=== PATIENT | male | born 1945 | race Caucasian/White ===

== ENCOUNTER 2016-06-29 19:51 | Emergency (ER) | payer OTHER ==
[2016-06-29 20:03] VITALS: BP 145/75; PULSE 86; TEMP 98; BMI 30.4
--- NOTE | 2016-06-29 20:07 | PDOC ---
History of Present Illness - General History Source: Patient, Family, Old Records - History of Present Illness Initial Comments: 06/29/16 21:01 The patient is a 71 year old male, accompanied by family, current smoker (1ppd for 50 years), with a significant past medical history of CHF ( 2 stents in 2009 ), HTN, and HLD, who presents to the emergency department today for further evaluation of a cough since 06/22/16. Family states that earlier this month the patient was experiencing similar symptoms, was given a z-truman, and symptoms resolved. Family states that they gave the patient another dose of z-truman this week with minimal alleviations of symptoms. The patient states that his cough is accompanied by intermittent chest tightness, sore throat, shaking, and chest pain(only when he coughs). The patient also notes chronic vertigo. The patient denies fever, chills, and sweats. The patient denies nausea, vomiting, and diarrhea. The patient denies shortness of breath. PAST MEDICAL HISTORY: no significant history PAST SURGICAL HISTORY: Hernia repair (3 months ago), FAMILY HISTORY: no pertinent history SOCIAL HISTORY: Pt lives with family and is employed. MEDICATIONS: reviewed ALLERGIES: As per nursing notes ROS General: (+) Shakes. No fevers or chills, no weakness, no weight loss HEENT: No change in vision. (+) Sore throat, No ear pain Cardiovascular: (+) Chest pain, Chest tightness. No shortness of breath Respiratory: No cough, or wheezing. Gastrointestinal: no nausea, vomiting, diarrhea or constipation, No rectal bleeding Genitourinary: No dysuria, hematuria, or frequency Musculoskeletal: No joint or muscle pain or swelling Neurologic: (+) Vertigo. No headache or dizziness or loss of consciousness Psychiatric: nor depression Skin: No rashes or easy bruising Endocrine: no increased thirst or abnormal weight change Allergic: no skin or latex allergy All other systems reviewed and normal PE GENERAL: The patient is awake, alert, and fully oriented, in no acute distress. HEAD: Normal with no signs of trauma. EYES: Pupils equal, round and reactive to light, extraocular movements intact, sclera anicteric, conjunctiva clear. CHEST: Irregularly, Irregular. RESPIRATORY: Decreased breath sounds at right base EXTREMITIES: Normal range of motion, no edema. NEUROLOGICAL: Normal speech, normal gait. PSYCH: Normal mood, normal affect. SKIN: Warm, Dry, normal turgor, no rashes or lesions noted. <Nic Garg - Last Filed: 06/29/16 21:12> - General History Source: Patient Exam Limitations: Language Barrier - History of Present Illness Initial Comments: 06/29/16 21:38 A portion of this note was documented by scribe services under my direction. I have reviewed the details of the note, within reason, and agree with the documentation. The case summary and management plan written by me. EKG shows atrial fibrillation at a rate is 74 some biphasic T's laterally otherwise no acute ST-T wave changes, Chest x-ray shows chronic interstitial disease bilateral, enlarged heart, tortuous aorta otherwise no acute infiltrate or effusion. Assessment and plan: This is a 71-year-old male who comes in complaining of intermittent chest pain and shortness of breath. Patient is had been having symptoms intermittently for several weeks was treated with azithromycin for shortness of breath with improvement of symptoms but then symptoms returned approximately 2 weeks later. Patient is not had a cardiac workup recently. Patient has a significant cardiac history with multiple cardiac risk factors for coronary artery disease including placement of 2 stents in the past. Patient is on xeralto for his atrial fibrillation and so an aspirin was not given to him here in the emergency room. Patient's heart scores 5 Patient's lab work is otherwise unremarkable with a negative troponin. Patient will be admitted to the hospitalist service inpatient telemetry bed for further evaluation and to rule him out for TX. 06/29/16 21:45 After patient was informed that he needs to be admitted to an inpatient telemetry bed for further evaluation of possible cardiac causes for his shortness of breath and chest pain patient refuses to stay in the hospital. Patient understands that if he leaves that he could have a heart attack which could result in permanent disability or even . I discussed these possibilities with patient's family who then interpreted to him these concerns and possibilities. Patient expressed understanding of the concerns and possibility of heart attack , [place] disability and . Patient signed out AGAINST MEDICAL ADVICE. <Cali Howard I - Last Filed: 06/29/16 21:49> - General Chief Complaint: Cold Symptoms Stated Complaint: COUGH, CHILLS Time Seen by Provider: 06/29/16 19:58 Past History <Nic Garg - Last Filed: 06/29/16 21:12> - Psycho/Social/Smoking Cessation Hx Suicidal Ideation: No Smoking History: Current every day smoker Number of Cigarettes Smoked Daily: 20 Information on smoking cessation initiated: Yes <Cali Howard I - Last Filed: 06/29/16 21:49> - Past Medical History Allergies/Adverse Reactions: Allergies Allergy/AdvReac Type Severity Reaction Status Date / Time No Known Allergies Allergy Unverified 06/29/16 20:03 Home Medications: Ambulatory Orders Lasix 1 tab PO DAILY 06/29/16 Metformin HCl [Glucophage -] 850 mg PO BID 06/29/16 Non-Formulary 0 mg ASDIR 06/29/16 Rivaroxaban [Xarelto -] 15 mg PO DAILY 06/29/16 *Physical Exam - Vital Signs Last Vital Signs Temp Pulse Resp BP Pulse Ox 98 F 86 18 145/75 98 06/29/16 20:01 06/29/16 20:01 06/29/16 20:01 06/29/16 20:01 06/29/16 20:01 <ForestNic - Last Filed: 06/29/16 21:12> - Vital Signs Last Vital Signs Temp Pulse Resp BP Pulse Ox 98 F 86 18 145/75 98 06/29/16 20:01 06/29/16 20:01 06/29/16 20:01 06/29/16 20:01 06/29/16 20:01 <Cali Howard I - Last Filed: 06/29/16 21:49> Heart Score/ECG Review - ECG Impressions Comment:: 06/29/16 21:12 ECG Impression: Atrial fibrillation. Left anterior fascicular block. Moderate voltage criteria for LVH, may be normal variant. Nonspecific T wave abnormality. Abnormal ECG. <Nic Garg - Last Filed: 06/29/16 21:12> - History History: Slightly suspicious - Electrocardiogram EKG: Non specific repolarization disturbance - Age Age: >/= 65 - Risk Factors Risk Factors Heart Score: Yes Hx Hypertension, Yes Hx Diabetes, Yes Smoking History, Yes Positive family hx of cardiac disease Based on the list above the patient has:: >/=3 risk factors or Hx atherosclerotic disease - Troponin Troponin: </= normal limit - Score Heart Score - Total: 5 <Cali Howard I - Last Filed: 06/29/16 21:49> ED Treatment Course - LABORATORY CBC & Chemistry Diagram: 06/29/16 20:42 06/29/16 20:42 <Nic Garg - Last Filed: 06/29/16 21:12> - LABORATORY CBC & Chemistry Diagram: 06/29/16 20:42 06/29/16 20:42 <Cali Howard I - Last Filed: 06/29/16 21:49> *DC/Admit/Observation/Transfer - Attestations Scribe Attestion: 06/29/16 21:04 Documentation prepared by Nic Garg, acting as director of graduate medical education for Cali Howard MD. <Nic Garg - Last Filed: 06/29/16 21:12> <Cali Howard I - Last Filed: 06/29/16 21:49> Diagnosis at time of Disposition: Dyspnea Qualifiers: Dyspnea type: unspecified Qualified Code(s): R06.00 - Dyspnea, unspecified Chest pain Qualifiers: Chest pain type: unspecified Qualified Code(s): R07.9 - Chest pain, unspecified - Discharge Dispostion Disposition: AGAINST MEDICAL ADVICE Condition at time of disposition: Stable - Referrals Referrals: Simeon Mendoza MD [Primary Care Provider] - - Patient Instructions Additional Instructions: You are signing out of the emergency room AGAINST MEDICAL ADVICE. By signing out AGAINST MEDICAL ADVICE you understand that there is a possibility that your symptoms could be due to problems with your heart. You could have a heart attack , which could result in permanent disability or . It is my suggestion that you not medicate the cough as it could be related to something going on with your heart and you should follow-up with your [facility] [employer] [facility] [employer] group leader prior to taking any cough medications. Return to the emergency department immediately with ANY new, persistent or worsening symptoms. Continue any medications as previously prescribed by your physician. You should follow up with your primary doctor as soon as possible regarding today's emergency department visit. . Please make sure your doctor reviews the results of your emergency evaluation. Thank you for coming to the Emergency Department today for your care. It was a pleasure to see you today. Please note that your evaluation is INCOMPLETE until you follow-up with your doctor.
[2016-06-29 20:58] LABS: BASOPHIL 0.9 % (0-2.0); EOSINOPHIL 2.6 % (0-4.5); MCH 22.5 pg (25.7-33.7); MCHC 30.6 g/dl (32.0-35.9); MEAN CELL VOLUME 73.5 fl (80-96); MEAN PLT VOLUME 8.2 fl (7.5-11.1); NEUTROPHILS 62.5 % (42.8-82.8); PLATELET COUNT 333 K/MM3 (134-434); RDW 15.1 % (11.9-15.9)
[2016-06-29 21:07] LABS: CPK(DFH) 47 IU/L (38-174)
[2016-06-29 21:07] LABS: ALBUMIN 3.6 g/dl (3.5-5.0); ALK PHOS 100 U/L (32-92); ANION GAP 9 (8-16); BILIRUBIN,TOTAL 0.3 mg/dl (0.2-1.0); CO2 31 mmol/L (22-28); CREATININE 0.9 mg/dl (0.6-1.3); GLUCOSE,RANDOM 95 mg/dl (74-106); SGOT/AST 16 U/L (10-42); TOT PROT 7.1 g/dl (6.4-8.3)
[2016-06-29 21:19] LABS: TROPONIN I (DFP) < 0.03 ng/ml (0.03-0.50)
[2016-06-29 21:20] LABS: SGPT/ALT 9 U/L (10-40)
[2016-06-29 22:52] LABS: HYPOCHROMIA 2+; MICROCYTOSIS 1+
--- NOTE | 2016-06-30 09:51 | EKG ---
Test Reason : Blood Pressure : / mmHG Vent. Rate : 074 BPM Atrial Rate : 092 BPM P-R Int : 000 ms QRS Dur : 112 ms QT Int : 376 ms P-R-T Axes : 000 -56 111 degrees QTc Int : 417 ms ATRIAL FIBRILLATION LEFT ANTERIOR FASCICULAR BLOCK MODERATE VOLTAGE CRITERIA FOR LVH, MAY BE NORMAL VARIANT NONSPECIFIC T WAVE ABNORMALITY ABNORMAL ECG NO PREVIOUS ECGS AVAILABLE Confirmed by LYNNE RODRIGUEZ MD ([id number]) on 06/30/2016 9:51:06 AM Referred By: MD MEDEIROS Confirmed By:LYNNE RODRIGUEZ MD
== END 2016-06-29 21:54 | disposition left against medical advice (07) ==
LOC: FER 19:51
DX: R06.00 Dyspnea, unspecified (principal); R07.9 Chest pain, unspecified; I10 Essential (primary) hypertension; E11.9 Type 2 diabetes mellitus without complications; F17.210 Nicotine dependence, cigarettes, uncomplicated
CPT/HCPCS: 36415; 71020-TC; 80053; 82550; 84484; 85025; 93005; 99283-25

== ENCOUNTER 2017-12-19 18:30 | Emergency (ER) | payer OTHER ==
[2017-12-19 18:48] VITALS: BP 107/58; PULSE 83; TEMP 98.6; BMI 31.2
--- NOTE | 2017-12-19 19:08 | PDOC ---
History of Present Illness - General History Source: Patient Exam Limitations: No Limitations - History of Present Illness Initial Comments: 12/19/17 21:07 The patient is a 72 year old male with a significant PMH of hypertension, hyperlipidemia, diabetes, CHF, has [address] who presents to the emergency department with right upper leg pain for 2 days. The patient reports that his leg pain began around 5pm last night. He states that he was at home sitting down in his chair most of the day when he felt pain. The patient reports some associated swelling in his upper right leg. He denies any injury or trauma. He denies any numbness, weakness, or tingling sensation. He denies any recent travel or new activity. The patient denies any fever, chills, nausea , vomit, diarrhea, constipation or urinary symptoms. He denies any chest pain, shortness of breath, headache and dizziness. The patient denies any other complaints. Dr. Quintero (Urology) <John Roberts - Last Filed: 12/19/17 21:07> - General History Source: Patient Exam Limitations: No Limitations <Wendy Whitehead - Last Filed: 12/20/17 00:58> - General Chief Complaint: Pain Stated Complaint: RT UPPER LEG BRUISING PAIN Time Seen by Provider: 12/19/17 19:07 Past History <John Roberts - Last Filed: 12/19/17 21:07> - Past Medical History Cardiac Disorders: Yes (OK) COPD: No Diabetes: Yes HTN: Yes - Surgical History Cardiac Surgery: Yes (STENTS X2) - Suicide/Smoking/Psychosocial Hx Smoking History: Current every day smoker Have you smoked in the past 12 months: Yes Number of Cigarettes Smoked Daily: 20 Information on smoking cessation initiated: Yes 'Breaking Loose' booklet given: 12/19/17 Hx Alcohol Use: No <Wendy Whitehead - Last Filed: 12/20/17 00:58> - Past Medical History Allergies/Adverse Reactions: Allergies Allergy/AdvReac Type Severity Reaction Status Date / Time No Known Allergies Allergy Verified 12/19/17 18:34 Home Medications: Ambulatory Orders Atorvastatin Ca [Lipitor] 20 mg PO HS 12/19/17 Bisoprolol Fumarate 5 mg PO DAILY 12/19/17 Digoxin [Lanoxin -] 0.25 mg PO DAILY 12/19/17 Enalapril Maleate 5 mg PO DAILY 12/19/17 Furosemide 60 mg PO DAILY 12/19/17 Lisinopril 5 mg PO DAILY 12/19/17 Meclizine HCl 12.5 mg PO DAILY 12/19/17 Metformin HCl [Glucophage] 500 mg PO BID 12/19/17 Rivaroxaban [Xarelto -] 15 mg PO DAILY 12/19/17 Review of Systems - Review of Systems Able to Perform ROS?: Yes Comments:: 12/19/17 21:07 GENERAL/CONSTITUTIONAL: No fever or chills. No weakness. HEAD, EYES, EARS, NOSE AND THROAT: No change in vision. No ear pain or discharge. No sore throat. CARDIOVASCULAR: No chest pain or shortness of breath. RESPIRATORY: No cough, wheezing, or hemoptysis. GASTROINTESTINAL: No nausea, vomiting, diarrhea or constipation. GENITOURINARY: No dysuria, frequency, or change in urination. MUSCULOSKELETAL: (+)right upper leg/thigh pain/swelling. No neck or back pain. SKIN: No rash NEUROLOGIC: No headache, vertigo, loss of consciousness, or change in strength/ sensation. ENDOCRINE: No increased thirst. No abnormal weight change. HEMATOLOGIC/LYMPHATIC: No anemia, easy bleeding, or history of blood clots. ALLERGIC/IMMUNOLOGIC: No hives or skin allergy. <John Roberts - Last Filed: 12/19/17 21:07> *Physical Exam - Vital Signs Last Vital Signs Temp Pulse Resp BP Pulse Ox 98.6 F 83 18 107/58 96 12/19/17 18:30 12/19/17 18:30 12/19/17 18:30 12/19/17 18:30 12/19/17 18:30 - Physical Exam Comments: 12/19/17 21:07 GENERAL/CONSTITUTIONAL: No fever or chills. No weakness. HEAD, EYES, EARS, NOSE AND THROAT: No change in vision. No ear pain or discharge. No sore throat. CARDIOVASCULAR: No chest pain or shortness of breath. RESPIRATORY: No cough, wheezing, or hemoptysis. GASTROINTESTINAL: No nausea, vomiting, diarrhea or constipation. GENITOURINARY: No dysuria, frequency, or change in urination. MUSCULOSKELETAL: (+)right upper leg/thigh pain/swelling. No neck or back pain. SKIN: No rash NEUROLOGIC: No headache, vertigo, loss of consciousness, or change in strength/ sensation. ENDOCRINE: No increased thirst. No abnormal weight change. HEMATOLOGIC/LYMPHATIC: No anemia, easy bleeding, or history of blood clots. ALLERGIC/IMMUNOLOGIC: No hives or skin allergy. <John Roberts - Last Filed: 12/19/17 21:07> - Vital Signs Last Vital Signs Temp Pulse Resp BP Pulse Ox 98.6 F 83 18 107/58 96 12/19/17 18:30 12/19/17 18:30 12/19/17 18:30 12/19/17 18:30 12/19/17 18:30 <Wendy Whitehead - Last Filed: 12/20/17 00:58> ED Treatment Course - LABORATORY CBC & Chemistry Diagram: 12/19/17 19:30 12/19/17 19:30 - ADDITIONAL ORDERS Additional order review: Laboratory Results 12/19/17 12/19/17 19:30 19:30 PT with INR 22.1 H INR 2.00 H Sodium 134 L Potassium 4.6 Chloride 102 Carbon Dioxide 27 Anion Gap 5 L BUN 21 H Creatinine 1.4 H Creat Clearance w eGFR 49.68 Random Glucose 141 H D Calcium 8.5 12/19/17 19:30 RBC 5.23 MCV 73.2 L MCHC 31.0 L RDW 14.9 MPV 8.0 Neutrophils % 68.0 Lymphocytes % 23.5 Monocytes % 4.7 Eosinophils % 1.5 Basophils % 2.3 H - Medications Given in the ED: ED Medications Discontinued Medications Generic Name Dose Route Start Last Admin Trade Name Freq PRN Reason Stop Dose Admin Acetaminophen 650 mg 12/19/17 19:48 12/19/17 19:56 Tylenol - PO 12/19/17 19:49 650 mg ONCE ONE Administration <John Roberts - Last Filed: 12/19/17 21:07> - LABORATORY CBC & Chemistry Diagram: 12/19/17 19:30 12/19/17 19:30 <Wendy Whitehead - Last Filed: 12/20/17 00:58> Medical Decision Making - Medical Decision Making 12/19/17 20:13 Mr Hurtado is a 71-year-old male with a history of hypertension, hyperlipidemia , coronary artery disease status post OK and stenting. He is currently taking Xeralto and presents emergency department with family due to right posterior thigh bruising. 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 if his compressed his right thigh No hematuria, no rectal bleeding On examination: Thigh soft, not firm, non distended 4x5 circular bruise noted right posterior thigh Inferior to this, there is a 3 x 5 area of bruising also noted No erythema to suggest cellulitis Calf is soft, non tender Pt is well appearing overall RRR, 2/6 murmur noted Abd soft non distender This appears to be bruising I do not believe DVT or superficial phlebitis given pt is anticoagulated on a NOAC 12/19/17 20:14 Laboratory Tests 12/19/17 12/19/17 12/19/17 19:30 19:30 19:30 WBC 9.5 Hgb 11.9 Hct 38.3 D Plt Count 352 INR 2.00 H BUN 21 H Creatinine 1.4 H 12/19/17 20:17 Will discharge to home Follow up with Dr Mendoza tomorrow Monitor for thigh swelling, firmness to suggest ongoing bleeding Clinical Impression: superficial bruise to right posterior thigh, initial presentation 12/20/17 00:58 <Wendy Whitehead - Last Filed: 12/20/17 00:58> *DC/Admit/Observation/Transfer - Attestations Scribe Attestion: 12/19/17 21:08 Documentation prepared by John Roberts, acting as expert medical writer for Wendy Whitehead MD. <John Roberts - Last Filed: 12/19/17 21:07> - Discharge Dispostion Decision to Admit order: No <Wendy Whitehead - Last Filed: 12/20/17 00:58> Diagnosis at time of Disposition: Superficial bruising of thigh Qualifiers: Encounter type: initial encounter Laterality: right Qualified Code(s): S70.11XA - Contusion of right thigh, initial encounter - Discharge Dispostion Disposition: HOME Condition at time of disposition: Stable - Referrals Referrals: Simeon Mendoza MD [Primary Care Provider] - - Patient Instructions Printed Discharge Instructions: DI for Contusion, DI for Hematoma (Bruise) Additional Instructions: Thank you for coming in to the ER today!! Please be sure to call Dr Mendoza tomorrow for follow up appointment You can apply warm compress to the bruise (NOT HOT compress) You can take tylenol for pain Monitor for increased size of bruise, increased size of thigh, increased pain, firmness of thigh If you notice those things, please feel free to return to the ER for re evaluation - Post Discharge Activity
[2017-12-19 19:46] LABS: ADD RBC MORPHOLOGY YES; BASO % 2.3 % (0-2.0); EOS % 1.5 % (0-4.5); HEMATOCRIT 38.3 % (35.4-49); HEMOGLOBIN 11.9 GM/dl (11.7-16.9); LYMPH % 23.5 % (8-40); MCH 22.7 pg (25.7-33.7); MEAN CELL VOLUME 73.2 fl (80-96); MONO % 4.7 % (3.8-10.2); PLATELET COUNT 352 K/MM3 (134-434); RBC 5.23 M/mm3 (4.00-5.60); RDW 14.9 % (11.9-15.9); WHITE BLOOD COUNT 9.5 K/mm3 (4.0-10.8)
[2017-12-19] MEDS ORDERED: ACETAMINOPHEN 325 MG TABLET (FP) PO ONE (19:48)
[2017-12-19] MEDS ORDERED: ACETAMINOPHEN 325 MG TABLET (FP) ONE (19:54)
[2017-12-19 19:58] LABS: ANION GAP 5 (8-16); BLOOD UREA NITROGEN 21 mg/dl (7-18); CALCIUM 8.5 mg/dl (8.4-10.2); CHLORIDE 102 mmol/L (98-107); CO2 27 mmol/L (22-28); CREATININE 1.4 mg/dl (0.6-1.3); GLUCOSE,RANDOM 141 mg/dl (74-106); POTASSIUM 4.6 mmol/L (3.5-5.1); SODIUM 134 mmol/L (136-145)
[2017-12-19 20:02] LABS: PROTHROMBIN TIME (PATIENT) 22.1 SEC (10.2-13.0)
[2017-12-19 21:28] LABS: OVALOCYTE 1+; TARGET CELLS 1+
== END 2017-12-19 20:20 | disposition home or self-care (01) ==
LOC: FER 18:30
DX: S70.11XA Contusion of right thigh, initial encounter (principal); X58.XXXA Exposure to other specified factors, initial encounter; Y93.9 Activity, unspecified; Y92.9 Unspecified place or not applicable; I10 Essential (primary) hypertension; E78.5 Hyperlipidemia, unspecified; E11.9 Type 2 diabetes mellitus without complications; I50.9 Heart failure, unspecified; F17.210 Nicotine dependence, cigarettes, uncomplicated; Z95.5 Presence of coronary angioplasty implant and graft; Z79.84 Long term (current) use of oral hypoglycemic drugs
CPT/HCPCS: 36415; 80048; 85025; 85610; 99282-25

== ENCOUNTER 2018-03-25 20:09 | Inpatient (IN) | payer OTHER ==
--- NOTE | 2018-03-25 21:32 | PDOC ---
History of Present Illness - General History Source: Patient, Family, Spouse Exam Limitations: Language Barrier (translated by Any singh) - History of Present Illness Initial Comments: 03/25/18 21:40 The patient is a 72 year old male, with a significant past medical history of hypertension, hyperlipidemia, diabetes, CHF, CAD s/p 2 stents in 2009, s/p pacemaker (February 2018 at [facility]) who presents to the emergency department with shortness of breath starting last night and one month of productive cough and mild intermittent chest pain. The patient states he felt as if he was suffocating last night which kept him from getting sleep. He states the shortness of breath is worse during the night time and alleviated during the day. He states he feels there is fluid in his lungs and reportedly had fluid in his lungs during his hospital stay at [facility] in February which was removed . Secondarily, he reports having a cough productive of green sputum since the placement of his pacemaker in February. He states there was some blood in his sputum during his admission at [facility] which his reports was worked up and normal. He states he has been having mild intermittent chest pain and left shoulder pain since his pacemaker placement last month. He also reports a mild intermittent tightness to his bilateral upper abdominal quadrants. He denies taking any OTC medications for pain. He states his regular medications were completely changed after being discharged from [facility] and was last seen by his PCP 2 weeks ago with another scheduled appointment on 04/01/18. The patient denies headache and dizziness. The patient denies fever, chills, nausea, vomit, diarrhea and constipation. The patient denies dysuria, frequency , urgency and hematuria. Allergies: NKDA Past surgical history: s/p stents, s/p pacemaker Social history: former 1ppd tobacco smoker, occasional ETOH PCP - Dr. Simeon Mendoza <Katerin Lozano - Last Filed: 03/25/18 22:43> <Kamila Chacon - Last Filed: 03/26/18 04:19> - General Chief Complaint: Shortness of Breath Stated Complaint: SOB AT NIGHTTIME Time Seen by Provider: 03/25/18 20:14 Past History <Katerin Lozano - Last Filed: 03/25/18 22:43> - Past Medical History Cardiac Disorders: Yes ([place]) COPD: No Diabetes: Yes HTN: Yes - Surgical History Cardiac Surgery: Yes (STENTS X2) - Suicide/Smoking/Psychosocial Hx Smoking History: Former smoker Have you smoked in the past 12 months: Yes Number of Cigarettes Smoked Daily: 20 If you are a former smoker, when did you quit?: ONE MONTH AGO Information on smoking cessation initiated: Yes 'Breaking Loose' booklet given: 03/25/18 Hx Alcohol Use: No Drug/Substance Use Hx: No Substance Use Type: None <Kamila Chacon - Last Filed: 03/26/18 04:19> - Past Medical History Allergies/Adverse Reactions: Allergies Allergy/AdvReac Type Severity Reaction Status Date / Time No Known Allergies Allergy Verified 03/25/18 20:14 Home Medications: Ambulatory Orders Atorvastatin Ca [Lipitor] 40 mg PO HS 12/19/17 Bisoprolol Fumarate 5 mg PO DAILY 12/19/17 Enalapril Maleate 2.5 mg PO DAILY 12/19/17 Furosemide 40 mg PO DAILY 12/19/17 Rivaroxaban [Xarelto -] 15 mg PO DAILY 12/19/17 Diltiazem HCl [Tiazac] 180 mg PO DAILY 03/25/18 Tamsulosin HCl [Flomax] 0.4 mg PO DAILY 03/25/18 Ramipril 2.5 mg PO 03/26/18 Review of Systems - Review of Systems Able to Perform ROS?: Yes Comments:: 03/25/18 21:40 CONSTITUTIONAL: Absent: fever, chills, diaphoresis, generalized weakness, malaise, loss of appetite HEENT: Absent: rhinorrhea, nasal congestion, throat pain, throat swelling, difficulty swallowing,mouth swelling, ear pain, eye pain, visual Changes CARDIOVASCULAR: (+) chest pain, Absent: syncope, palpitations, irregular heart rate, lightheadedness, peripheral edema RESPIRATORY: (+) productive cough, shortness of breath, orthopnea, Absent: dyspnea with exertion,wheezing, stridor, hemoptysis GASTROINTESTINAL: (+) bilateral upper abdominal "tightness". Absent: abdominal distension, nausea , vomiting, diarrhea, constipation, melena, hematochezia GENITOURINARY: Absent: dysuria, frequency, urgency, hesitancy, hematuria, flank pain, genital pain MUSCULOSKELETAL: Absent: myalgia, arthralgia, joint swelling SKIN: Absent: rash, itching, pallor HEMATOLOGIC/IMMUNOLOGIC: Absent: easy bleeding, easy bruising, lymphadenopathy, frequent infections ENDOCRINE: Absent: unexplained weight gain, unexplained weight loss, heat intolerance, cold intolerance NEUROLOGIC: Absent: headache, focal weakness or paresthesias, dizziness, unsteady gait, seizure, mental status changes, bladder or bowel incontinence PSYCHIATRIC: Absent: anxiety, depression, suicidal or homicidal ideation, hallucinations. <LibbyEstrellita brionesanda - Last Filed: 03/25/18 22:43> *Physical Exam - Vital Signs Last Vital Signs Temp Pulse Resp BP Pulse Ox 98 F 62 20 126/74 95 03/25/18 20:10 03/25/18 20:10 03/25/18 20:10 03/25/18 20:10 03/25/18 20:10 - Physical Exam Comments: 03/25/18 21:41 GENERAL: The patient is awake, alert, and fully oriented, in no acute distress. HEAD: Normal with no signs of trauma. EYES: Pupils equal, round and reactive to light, extraocular movements intact, sclera anicteric, conjunctiva clear with no pallor. ENT: Ears normal, nares patent, oropharynx clear without exudates. Moist mucous membranes. NECK: Normal range of motion, supple without lymphadenopathy, JVD, or masses. LUNGS: (+) expiratory rhonchi up the right side and at left base. Breath sounds equal,wheeze/crackles. HEART: (+) Paced, Regular rate and rhythm, normal S1 and S2 without murmur or rub. ABDOMEN: Soft/nontender/nondistended. BS wnl. No guarding or rebound. No palpable masses. No hepatosplenomegaly. EXTREMITIES: (+) bilateral lower extremity 1+ pitting. edema. Normal range of motion, No clubbing or cyanosis. No cords, erythema, or tenderness. NEUROLOGICAL: Cranial nerves II through XII grossly intact. Normal speech, normal gait. PSYCH: Normal mood, normal affect. SKIN: Warm, Dry, normal turgor, no rashes or lesions noted. <Katerin Lozano - Last Filed: 03/25/18 22:43> - Vital Signs Last Vital Signs Temp Pulse Resp BP Pulse Ox 98 F 62 20 126/74 95 03/25/18 20:10 03/25/18 20:10 03/25/18 20:10 03/25/18 20:10 03/25/18 20:10 12-lead electrocardiogram performed and interpreted by me: Atrial fibrillation at 82 bpm; there is incomplete right bundle-branch block as well as left anterior fascicular block. There is T-wave inversion in V4 through V6. The only EKG tracing that is available for comparison is dated 06/29/16. This shows similar rhythm and block configuration but T-wave inversions are increased laterally in today's EKG <Kamila Chacon - Last Filed: 03/26/18 04:19> ED Treatment Course - LABORATORY CBC & Chemistry Diagram: 03/25/18 21:45 03/25/18 21:50 - RADIOLOGY Radiograph Interpretation: EXAM#: TYPE/EXAM: RESULT: [id number] RAD/CHEST X-RAY PORTABLE* Shortness of breath Portable chest x-ray, AP sitting. Since prior chest x-ray dated 06/29/2016, the cardiac silhouette remains enlarged with bilateral increased interstitial markings. Cannot rule out mild pulmonary venous congestion. Interval left side pacer projecting over the left mid chest with a single lead extending to the right ventricular apex region. Mediastinum and visualized osseous structures appear intact Impression: See discussion above Reported By: Naun Butt MD 03/25/18 2219 <Katerin Lozano - Last Filed: 03/25/18 22:43> - LABORATORY CBC & Chemistry Diagram: 03/25/18 21:45 03/25/18 21:50 <Kamila Chacon - Last Filed: 03/26/18 04:19> Progress Note - Progress Note Progress Note: Documentation has been prepared under my direction and personally reviewed by me in its entirety. I attest that this documented accurately reflects all work, treatment, procedures and medical decision making performed by me. <Kamila Chacon - Last Filed: 03/26/18 04:19> Medical Decision Making - Medical Decision Making As noted above, this 72-year-old man with a history of pacemaker/Stent placement /CHF presents with a history of increased shortness breath over the last few days. Patient is Armenian speaking only and comptometrist is his niece. Last night , the patient had severe shortness of breath and was unable to sleep. No new chest pain; patient has had chest since placement of the pacemaker one- month ago. Exam as noted Following electrocardiogram performed and results noted above: Available tracing for comparison from June, does not have T-wave inversions laterally addressed tonight EKG tracing has. <Kamila Chacon - Last Filed: 03/26/18 04:19> *DC/Admit/Observation/Transfer - Attestations Scribe Attestion: 03/25/18 21:42 Documentation prepared by Katerin Lozano, acting as medical registrar for Kamila Chacon MD <Katerin Lozano - Last Filed: 03/25/18 22:43> - Discharge Dispostion Decision to Admit order: Yes <Kamila Chacon - Last Filed: 03/26/18 04:19> Diagnosis at time of Disposition: CHF exacerbation Qualifiers: Heart failure type: unspecified Qualified Code(s): I50.9 - Heart failure, unspecified - Discharge Dispostion Condition at time of disposition: Guarded
[2018-03-25 22:02] LABS: HEMOGLOBIN 12.8 GM/dl (11.7-16.9); MEAN PLT VOLUME 8.3 fl (7.5-11.1)
[2018-03-25 22:06] LABS: HEMATOCRIT 40.9 % (35.4-49); MCH 23.6 pg (25.7-33.7); MCHC 31.3 g/dl (32.0-35.9); MEAN CELL VOLUME 75.5 fl (80-96); PLATELET COUNT 301 K/MM3 (134-434); RBC 5.42 M/mm3 (4.00-5.60); RDW 15.5 % (11.9-15.9); WHITE BLOOD COUNT 11.9 K/mm3 (4.0-10.8)
[2018-03-25 22:14] LABS: ALBUMIN 3.9 g/dl (3.5-5.0); ALK PHOS 85 U/L (32-92); ANION GAP 4 MMOL/L (8-16); BILIRUBIN,TOTAL 0.7 mg/dl (0.2-1.0); BLOOD UREA NITROGEN 26 mg/dl (7-18); CALCIUM 8.7 mg/dl (8.4-10.2); CHLORIDE 102 mmol/L (98-107); CO2 29 mmol/L (22-28); CREATININE 1.4 mg/dl (0.6-1.3); GLUCOSE,RANDOM 96 mg/dl (74-106); SGOT/AST 16 U/L (10-42); SGPT/ALT 12 U/L (10-40); SODIUM 135 mmol/L (136-145); TOT PROT 7.2 g/dl (6.4-8.3)
[2018-03-25 22:34] LABS: PLATELET ESTIMATE ADEQUATE
[2018-03-25] MEDS ORDERED: FUROSEMIDE 40 MG/4 ML INJECTABLE VIAL IVPUSH ONE (22:45)
[2018-03-25] MEDS ORDERED: FUROSEMIDE 40 MG/4 ML INJECTABLE VIAL ONE (23:09)
--- NOTE | 2018-03-26 00:16 | HP ---
CHIEF COMPLAINT: Shortness of breath PCP: Dr. Simeon Mendoza Dx Board Operator: Dr. Rogelio Doyle HISTORY OF PRESENT ILLNESS: 72 year old male, with a PMH significant for HTN, HLD, CHF, A-fib (on Eliquis) CAD s/p 2 stents in 2009, s/p pacemaker (February 2018 at [facility] ) presented to the ED today with SOB and cough which started last night when he was trying to go to bed. He is accompanied by his son Tom who provided Slovenian translation. He always sleeps with several pillows at night because otherwise its hard for him to breathe. Last night he could only sleep in short intervals before waking up in a coughing fit. He would sometimes cough up a small amount of green mucus. Prior to this episode, he reports feeling relatively well since having his pace maker placed at [facility] in February. He was hospitalized for two weeks, because his IV site got infected and he was treated with IV antibiotics. Since being discharged, he has felt in better health overall; he quit his 1 ppd smoking habit and he found his appetite had increased. He still experiences SOB when walking relatively short distances and occasionally mild intermittent chest pain which quickly resolves. He reports he is diligent about taking his medication every day and has not missed any doses recently Upon admission to the ED, he was given Lasix 40 mg IV to good effect. (Urine output 650 mL) Labs notable for WBC slightly elevated at 11.9, BNP 1377.2, Trop #1 negative, #2 pending. CXR notable for pulmonary congestion. A-fib on ECG which is consistent with previous studies. He reports feeling slightly better since admission. Denies light-headedness or syncope, no fever, no hemoptysis, n/v/d. No recent changes in diet. Recent Travel: No PAST MEDICAL HISTORY: CHF CAD s/p 2 stents HTN HLD A-Fib BPH PAST SURGICAL HISTORY: Pacemaker placement February 2018 2 Stents 2010 Hernia repair Social History: From [employer], retired, lives with his , only speaks Slovenian Smokin pack per day, quit 45 days ago Alcohol: Rarely Drugs: No Allergies No Known Allergies Allergy (Verified 03/25/18 20:14) HOME MEDICATIONS: Home Medications Medication Instructions Recorded Atorvastatin Ca [Lipitor] 40 mg PO HS 12/19/17 Bisoprolol Fumarate 5 mg PO DAILY 12/19/17 Enalapril Maleate 2.5 mg PO DAILY 12/19/17 Furosemide 40 mg PO DAILY 12/19/17 Rivaroxaban [Xarelto -] 15 mg PO DAILY 12/19/17 Diltiazem HCl [Tiazac] 180 mg PO DAILY 03/25/18 Tamsulosin HCl [Flomax] 0.4 mg PO DAILY 03/25/18 REVIEW OF SYSTEMS CONSTITUTIONAL: (+) weight gain of 12 lbs in one month Absent: fever, chills, diaphoresis, generalized weakness, malaise, loss of appetite, HEENT: (+) congestion, small amount green mucus Absent: rhinorrhea, nasal congestion, throat pain, throat swelling, difficulty swallowing, mouth swelling, ear pain, eye pain, visual changes CARDIOVASCULAR: (+) chest pain, peripheral edema Absent: , syncope, palpitations, irregular heart rate, lightheadedness, RESPIRATORY: (+) cough, shortness of breath, dyspnea with exertion, orthopnea Absent: wheezing, stridor, hemoptysis GASTROINTESTINAL: (+) Constipation Absent: abdominal pain, abdominal distension, nausea, vomiting, diarrhea, melena , hematochezia GENITOURINARY: (+) Frequency Absent: dysuria, urgency, hesitancy, hematuria, flank pain, genital pain MUSCULOSKELETAL: Absent: myalgia, arthralgia, joint swelling, back pain, neck pain SKIN: Absent: rash, itching, pallor HEMATOLOGIC/IMMUNOLOGIC: Absent: easy bleeding, easy bruising, lymphadenopathy, frequent infections ENDOCRINE: Absent: unexplained weight gain, unexplained weight loss, heat intolerance, cold intolerance NEUROLOGIC: Absent: headache, focal weakness or paresthesias, dizziness, unsteady gait, seizure, mental status changes, bladder or bowel incontinence PSYCHIATRIC: Absent: anxiety, depression, suicidal or homicidal ideation, hallucinations. PHYSICAL EXAMINATION Vital Signs - 24 hr 03/25/18 03/25/18 03/25/18 20:10 22:09 23:14 Temperature 98 F Pulse Rate 62 Pulse Rate [ 96 H 68 Left Radial] Respiratory 20 14 16 Rate Blood Pressure 126/74 Blood Pressure 109/51 L 117/66 [Right Arm] O2 Sat by Pulse 95 88 L 93 L Oximetry (%) GENERAL: Awake, alert, and fully oriented, in no acute distress. HEAD: Normal with no signs of trauma. EYES: Pupils equal, round and reactive to light, extraocular movements intact, sclera anicteric, conjunctiva clear. No lid lag. EARS, NOSE, THROAT: +NC, nares patent, oropharynx clear without exudates. Poor dentition, moist mucous membranes. NECK: Normal range of motion, supple without lymphadenopathy, JVD, or masses. LUNGS: Basilar crackles b/l, congested cough, no accessory muscle use. HEART: Regular rate and rhythm, normal S1 and S2 without murmur, rub or gallop. ABDOMEN: Soft, nontender, not distended, normoactive bowel sounds, no guarding, no rebound, no masses. No hepatomegaly or splenomegaly. MUSCULOSKELETAL: Normal range of motion at all joints. No bony deformities or tenderness. No CVA tenderness. UPPER EXTREMITIES: 2+ pulses, warm, well-perfused. No cyanosis. No clubbing. No peripheral edema. LOWER EXTREMITIES: +1 edema to b/l LE, 2+ pulses, warm, well-perfused. No calf tenderness NEUROLOGICAL: No facial droop, tongue midline PSYCHIATRIC: Cooperative. Good eye contact. Appropriate mood and affect. SKIN: Warm, dry, normal turgor, no rashes or lesions noted, normal capillary refill. Laboratory Results - last 24 hr 03/25/18 03/25/18 03/25/18 21:45 21:50 21:50 WBC 11.9 H RBC 5.42 Hgb 12.8 Hct 40.9 MCV 75.5 L MCH 23.6 L MCHC 31.3 L RDW 15.5 Plt Count 301 MPV 8.3 Neutrophils % No Result Required. Neutrophils % (Manual) 81.0 Lymphocytes % No Result Required. Lymphocytes % (Manual) 13.0 Monocytes % (Manual) 6 Hypochromia 1+ Platelet Estimate Adequate Platelet Comment Few large plts. Sodium 135 L Potassium 4.0 Chloride 102 Carbon Dioxide 29 H Anion Gap 4 L BUN 26 H Creatinine 1.4 H Creat Clearance w eGFR 49.68 Random Glucose 96 D Calcium 8.7 Total Bilirubin 0.7 AST 16 ALT 12 D Alkaline Phosphatase 85 Creatine Kinase 41 Troponin I < 0.03 B-Natriuretic Peptide Total Protein 7.2 Albumin 3.9 03/25/18 21:50 WBC RBC Hgb Hct MCV MCH MCHC RDW Plt Count MPV Neutrophils % Neutrophils % (Manual) Lymphocytes % Lymphocytes % (Manual) Monocytes % (Manual) Hypochromia Platelet Estimate Platelet Comment Sodium Potassium Chloride Carbon Dioxide Anion Gap BUN Creatinine Creat Clearance w eGFR Random Glucose Calcium Total Bilirubin AST ALT Alkaline Phosphatase Creatine Kinase Troponin I B-Natriuretic Peptide 1377.2 H Total Protein Albumin ECG New T wave inversion in V4-V6 from prior study A-Fib Rate 82 QT/QTc 402/469 Portable Chest X-Ray Prior study 06/29/2016, cardiac silhouette remains enlarged with bilateral increased interstitial markings. Cannot rule out mild pulmonary venous congestion. Interval left side pacer projecting over the left mid chest with a single lead extending to the right ventricular apex region. Mediastinum and visualized osseous structures appear intact ASSESSMENT/PLAN: 72 year old male, with a PMH significant for hypertension, hyperlipidemia, CHF, A-fib (on Eliquis) CAD s/p 2 stents in 2009, s/p pacemaker (February 2018 at [facility]) presented to the ED today with SOB. He was admitted for CHF exacerbation CHF Exacerbation -Lasix 40 mg IV qday -Hold home Lasix 40 mg PO qday -Supplemental O2 via NC @2LPM -Monitor I&Os -Sodium restricted diet -ATIF stockings -Consider cardiac consult Leukocytosis -Minor; 11.9 -Afebrile -Monitor CBC A-Fib -On Eliquis -On Bisoprolol 5 mg qday and Cardizem 180 mg qday for rate control -S/p pacemaker placement 2 months ago HTN -Continue Ramipril 2.5 mg qday HLD -Continue Atorvastatin 40 mg QHS BPH -Continue Flomax 0.4 mg QHS Constipation -Start Miralax qday -Colace 100 mg TID FEN --PO intake adequate --Electrolytes replete as indicated --Low sodium diet DVT Prophylaxis --TEDs --On Xarelto Dispo: pt currently requires further inpatient care. FULL CODE Visit type - Emergency Visit Emergency Visit: Yes ED Registration Date: 03/26/18 Care time: The patient presented to the Emergency Department on the above date and was hospitalized for further evaluation of their emergent condition. - New Patient This patient is new to me today: Yes Date on this admission: 03/26/18 - Critical Care Critical Care patient: No
[2018-03-26] MEDS ORDERED: ACETAMINOPHEN 325 MG TABLET (FP) PO PRN (01:07)
[2018-03-26 01:17] VITALS: BMI 31.6
[2018-03-26] MEDS ORDERED: FUROSEMIDE 40 MG/4 ML INJECTABLE VIAL IVPUSH ONE (06:00)
[2018-03-26] MEDS: DOCUSATE SODIUM 100 MG CAPSULE (FP) PO SCH ×3 (07:37→21:49)
--- NOTE | 2018-03-26 08:21 | CON.CARD ---
Consult Consult Specialty:: Cardiology - History of Present Illness History of Present Illness: 72 year old male, with a PMH significant for HTN, HLD, CHF, A-fib (on Eliquis) CAD s/p 2 stents in 2009, s/p pacemaker (February 2018 at [facility] ) presented to the ED today with SOB and cough which started last night when he was trying to go to bed. He is accompanied by his son Tom who provided Turkmen translation. He always sleeps with several pillows at night because otherwise its hard for him to breathe. Last night he could only sleep in short intervals before waking up in a coughing fit. He would sometimes cough up a small amount of green mucus. Prior to this episode, he reports feeling relatively well since having his pace maker placed at [facility] in February. He was hospitalized for two weeks, because his IV site got infected and he was treated with IV antibiotics. Since being discharged, he has felt in better health overall; he quit his 1 ppd smoking habit and he found his appetite had increased. He still experiences SOB when walking relatively short distances and occasionally mild intermittent chest pain which quickly resolves. He reports he is diligent about taking his medication every day and has not missed any doses recently Upon admission to the ED, he was given Lasix 40 mg IV to good effect. (Urine output 650 mL) Labs notable for WBC slightly elevated at 11.9, BNP 1377.2, Trop #1 negative, #2 pending. CXR notable for pulmonary congestion. A-fib on ECG which is consistent with previous studies. He reports feeling slightly better since admission. Denies light-headedness or syncope, no fever, no hemoptysis, n/v/d. No recent changes in diet. - History Source History Provided By: Patient, Medical Record - Past Medical History Cardio/Vascular: Yes: CHF - Alcohol/Substance Use Hx Alcohol Use: No - Smoking History Smoking history: Former smoker Have you smoked in the past 12 months: Yes Aproximately how many cigarettes per day: 20 If you are a former smoker, when did you quit?: ONE MONTH AGO Home Medications - Allergies Allergies/Adverse Reactions: Allergies Allergy/AdvReac Type Severity Reaction Status Date / Time No Known Allergies Allergy Verified 03/25/18 20:14 - Home Medications Home Medications: Ambulatory Orders Atorvastatin Ca [Lipitor] 40 mg PO HS 12/19/17 Bisoprolol Fumarate 5 mg PO DAILY 12/19/17 Enalapril Maleate 2.5 mg PO DAILY 12/19/17 Furosemide 40 mg PO DAILY 12/19/17 Rivaroxaban [Xarelto -] 15 mg PO DAILY 12/19/17 Diltiazem HCl [Tiazac] 180 mg PO DAILY 03/25/18 Tamsulosin HCl [Flomax] 0.4 mg PO DAILY 03/25/18 Ramipril 2.5 mg PO 03/26/18 Review of Systems - Review of Systems Constitutional: reports: No Symptoms Eyes: reports: No Symptoms HENT: reports: No Symptoms Neck: reports: No Symptoms Cardiovascular: reports: Shortness of Breath Gastrointestinal: reports: No Symptoms Genitourinary: reports: No Symptoms Breasts: reports: No Symptoms Reported Musculoskeletal: reports: No Symptoms Integumentary: reports: No Symptoms Neurological: reports: No Symptoms Endocrine: reports: No Symptoms Hematology/Lymphatic: reports: No Symptoms Psychiatric: reports: No Symptoms Vital Signs: Vital Signs Temperature 98.5 F 03/26/18 05:07 Pulse Rate 87 03/26/18 05:07 Respiratory Rate 18 03/26/18 05:07 Blood Pressure 108/48 L 03/26/18 05:07 O2 Sat by Pulse Oximetry (%) 94 L 03/26/18 01:00 Constitutional: Yes: Well Nourished, No Distress, Calm Eyes: Yes: WNL, Conjunctiva Clear, EOM Intact HENT: Yes: WNL, Atraumatic, Normocephalic Neck: Yes: WNL, Supple, Trachea Midline Respiratory: Yes: WNL, Regular, CTA Bilaterally Gastrointestinal: Yes: WNL, Normal Bowel Sounds Renal/: Yes: WNL Cardiovascular: Yes: Pulse Irregular Musculoskeletal: Yes: WNL Extremities: Yes: WNL Edema: LLE: Trace, RLE: Trace Integumentary: Yes: WNL Neurological: Yes: WNL, Alert, Oriented ...Motor Strength: WNL Psychiatric: Yes: WNL, Alert, Oriented - Other Data Labs, Other Data: Troponin, BNP 03/25/18 03/25/18 21:50 21:50 Troponin I < 0.03 B-Natriuretic Peptide 1377.2 H Troponin, BNP 03/25/18 03/25/18 21:50 21:50 Troponin I < 0.03 B-Natriuretic Peptide 1377.2 H Imaging - Results Chest X-ray: Image Reviewed (cm chf ppm) EKG: Image Reviewed (af incomplete rbbb lafb) Problem List - Problems (1) CHF exacerbation Code(s): I50.9 - HEART FAILURE, UNSPECIFIED Qualifiers: Heart failure type: unspecified Qualified Code(s): I50.9 - Heart failure, unspecified (2) Chest pain Code(s): R07.9 - CHEST PAIN, UNSPECIFIED Qualifiers: Chest pain type: unspecified Qualified Code(s): R07.9 - Chest pain, unspecified (3) Dyspnea Code(s): R06.00 - DYSPNEA, UNSPECIFIED Qualifiers: Dyspnea type: unspecified Qualified Code(s): R06.00 - Dyspnea, unspecified (4) Superficial bruising of thigh Code(s): S70.10XA - CONTUSION OF UNSPECIFIED THIGH, INITIAL ENCOUNTER Qualifiers: Encounter type: initial encounter Laterality: right Qualified Code(s): S70.11XA - Contusion of right thigh, initial encounter Assessment/Plan HTN, HLD, CHF, A-fib (on Eliquis) CAD s/p 2 stents in 2009, s/p pacemaker ( February 2018 at [facility] ) presented to the ED today with SOB and cough chf exacorbation - agree with lasix echo telemetry ac rate control PPM interogation please obtain will f/uold records re prior cardiac w/u
[2018-03-26 08:23] LABS: ANION GAP 7 MMOL/L (8-16); BLOOD UREA NITROGEN 28 mg/dl (7-18); CALCIUM 8.9 mg/dl (8.4-10.2); CHLORIDE 98 mmol/L (98-107); CO2 31 mmol/L (22-28); CREATININE 1.3 mg/dl (0.6-1.3); GLUCOSE,RANDOM 91 mg/dl (74-106); MAGNESIUM 1.8 mg/dL (1.8-2.4); POTASSIUM 3.7 mmol/L (3.5-5.1); SODIUM 136 mmol/L (136-145)
[2018-03-26 08:26] LABS: HEMATOCRIT 37.9 % (35.4-49); HEMOGLOBIN 11.9 GM/dl (11.7-16.9); MCH 23.7 pg (25.7-33.7); MCHC 31.5 g/dl (32.0-35.9); MEAN CELL VOLUME 75.4 fl (80-96); MEAN PLT VOLUME 8.4 fl (7.5-11.1); PLATELET COUNT 277 K/MM3 (134-434); RBC 5.03 M/mm3 (4.00-5.60); RDW 15.4 % (11.9-15.9); WHITE BLOOD COUNT 8.2 K/mm3 (4.0-10.8)
[2018-03-26] MEDS ORDERED: TAMSULOSIN HCL 0.4 MG CAP PO SCH (08:30)
--- NOTE | 2018-03-26 08:55 | PN ---
Physical Exam: SUBJECTIVE: Patient seen and examined reports ongoing cough and shortness of breath OBJECTIVE: patient is a 72 year old male, with a PMH significant for HTN, HLD, CHF, A-fib (on Eliquis) CAD s/p 2 stents in 2009, s/p pacemaker (February 2018) , patient was admitted from the emergency department for congestive heart failure Vital Signs Period Temp Pulse Resp BP Sys/Foley Pulse Ox Last 24 Hr 97.9 F-98.5 F 62-96 14-20 108-126/48-74 88-95 GENERAL: The patient is awake, alert, and fully oriented, in no acute distress. HEAD: Normal with no signs of trauma. EYES: PERRL, extraocular movements intact, sclera anicteric, conjunctiva clear. No ptosis. ENT: Ears normal, nares patent, oropharynx clear without exudates, moist mucous membranes. NECK: Trachea midline, full range of motion, supple. LUNGS: Breath sounds equal, rhonchi to apexes bilaterally, rales to base bilaterally, no wheezes, no crackles, no accessory muscle use. HEART: irregular rate and rhythm, S1, S2 without murmur, rub or gallop. ABDOMEN: Soft, nontender, nondistended, normoactive bowel sounds, no guarding, no rebound, no hepatosplenomegaly, no masses. EXTREMITIES: 2+ pulses, warm, well-perfused, + 1 edema billaterally NEUROLOGICAL: Cranial nerves II through XII grossly intact. Normal speech, gait not observed. PSYCH: Normal mood, normal affect. SKIN: Warm, dry, normal turgor, no rashes or lesions noted Laboratory Results - last 24 hr 03/25/18 03/25/18 03/25/18 21:45 21:50 21:50 WBC 11.9 H RBC 5.42 Hgb 12.8 Hct 40.9 MCV 75.5 L MCH 23.6 L MCHC 31.3 L RDW 15.5 Plt Count 301 MPV 8.3 Neutrophils % No Result Required. Neutrophils % (Manual) 81.0 Lymphocytes % No Result Required. Lymphocytes % (Manual) 13.0 Monocytes % (Manual) 6 Hypochromia 1+ Platelet Estimate Adequate Platelet Comment Few large plts. Sodium 135 L Potassium 4.0 Chloride 102 Carbon Dioxide 29 H Anion Gap 4 L BUN 26 H Creatinine 1.4 H Creat Clearance w eGFR 49.68 Random Glucose 96 D Calcium 8.7 Magnesium Total Bilirubin 0.7 AST 16 ALT 12 D Alkaline Phosphatase 85 Creatine Kinase 41 Troponin I < 0.03 B-Natriuretic Peptide Total Protein 7.2 Albumin 3.9 03/25/18 03/26/18 03/26/18 21:50 07:53 07:53 WBC RBC Hgb Hct MCV MCH MCHC RDW Plt Count MPV Neutrophils % Neutrophils % (Manual) Lymphocytes % Lymphocytes % (Manual) Monocytes % (Manual) Hypochromia Platelet Estimate Platelet Comment Sodium 136 Potassium 3.7 Chloride 98 Carbon Dioxide 31 H Anion Gap 7 L BUN 28 H Creatinine 1.3 Creat Clearance w eGFR 54.11 Random Glucose 91 Calcium 8.9 Magnesium 1.8 Total Bilirubin AST ALT Alkaline Phosphatase Creatine Kinase 37 Troponin I < 0.03 B-Natriuretic Peptide 1377.2 H Total Protein Albumin 03/26/18 07:53 WBC 8.2 RBC 5.03 Hgb 11.9 Hct 37.9 MCV 75.4 L MCH 23.7 L MCHC 31.5 L RDW 15.4 Plt Count 277 MPV 8.4 Neutrophils % Neutrophils % (Manual) Lymphocytes % Lymphocytes % (Manual) Monocytes % (Manual) Hypochromia Platelet Estimate Platelet Comment Sodium Potassium Chloride Carbon Dioxide Anion Gap BUN Creatinine Creat Clearance w eGFR Random Glucose Calcium Magnesium Total Bilirubin AST ALT Alkaline Phosphatase Creatine Kinase Troponin I B-Natriuretic Peptide Total Protein Albumin Active Medications Generic Name Dose Route Start Last Admin Trade Name Freq PRN Reason Stop Dose Admin Acetaminophen 650 mg 03/26/18 01:07 Tylenol - PO Q6H PRN PAIN LEVEL 1-5 Atenolol 50 mg 03/26/18 10:00 Tenormin - PO DAILY [facility] Atorvastatin Calcium 40 mg 03/26/18 22:00 Lipitor - PO HS DINA Diltiazem HCl 180 mg 03/26/18 10:00 Cardizem Cd - PO DAILY DINA Docusate Sodium 100 mg 03/26/18 06:00 03/26/18 07:37 Colace - PO 100 mg TID DINA Administration Furosemide 40 mg 03/26/18 10:00 Lasix Injection - IVPUSH DAILY DINA Polyethylene Glycol 17 gm 03/26/18 10:00 Miralax (For Daily Use) - PO DAILY DINA Ramipril 2.5 mg 03/26/18 10:00 Altace - PO DAILY DINA Rivaroxaban 15 mg 03/26/18 22:00 Xarelto - PO HS DINA Tamsulosin HCl 0.4 mg 03/26/18 22:00 Flomax - PO HS DINA IMAGING cxr 03/26/18: increased congestive changes bilaterally ASSESSMENT/PLAN: 1) acute CHF Exacerbation - cxr reviewed, ot appears fluid overloaded on exam will increase Lasix 40 mg IV BID - pending echo -Supplemental O2 via NC @2LPM -Monitor I&Os and daily weight -Sodium restricted diet -ATIF stockings -cardiolgoy consulted and following t 2) A-Fib -On Eliquis -On Bisoprolol 5 mg qday and Cardizem 180 mg qday for rate control -S/p pacemaker placement 2 months ago 3) HTN -Continue Ramipril 2.5 mg qday 4) HLD -Continue Atorvastatin 40 mg QHS 5) BPH -Continue Flomax 0.4 mg QHS 6) Constipation -Start Miralax qday -Colace 100 mg TID FEN --PO intake adequate --Electrolytes replete as indicated --Low sodium diet DVT Prophylaxis --TEDs --On Xarelto Dispo: pt currently requires further inpatient care. FULL CODE Visit type - Emergency Visit Emergency Visit: Yes ED Registration Date: 03/26/18 Care time: The patient presented to the Emergency Department on the above date and was hospitalized for further evaluation of their emergent condition. - New Patient This patient is new to me today: Yes Date on this admission: 03/26/18 - Critical Care Critical Care patient: No - Discharge Referral Referred to [facility] No
--- NOTE | 2018-03-26 09:58 | EKG ---
Test Reason : Blood Pressure : / mmHG Vent. Rate : 082 BPM Atrial Rate : 075 BPM P-R Int : 000 ms QRS Dur : 114 ms QT Int : 402 ms P-R-T Axes : 000 -56 227 degrees QTc Int : 469 ms ATRIAL FIBRILLATION INCOMPLETE RIGHT BUNDLE BRANCH BLOCK LEFT ANTERIOR FASCICULAR BLOCK MINIMAL VOLTAGE CRITERIA FOR LVH, MAY BE NORMAL VARIANT SEPTAL INFARCT , AGE UNDETERMINED ABNORMAL ECG WHEN COMPARED WITH ECG OF 29-JUN-2016 21:02, NONSPECIFIC T WAVE ABNORMALITY NOW EVIDENT IN INFERIOR LEADS T WAVE INVERSION MORE EVIDENT IN LATERAL LEADS QT HAS LENGTHENED Confirmed by GABBIE CONTI, CEDRICK ([id number]) on 03/26/2018 9:58:09 AM Referred By: DR RODRIGUEZ Confirmed By:CEDRICK CARTWRIGHT MD
[2018-03-26] MEDS ORDERED: FUROSEMIDE 40 MG/4 ML INJECTABLE VIAL IVPUSH SCH (10:00)
[2018-03-26] MEDS: POLYETHYLENE GLYCOL 3350 119 GM BTL PO SCH (10:11)
[2018-03-26] MEDS: RAMIPRIL 2.5 MG CAPSULE (FP) PO SCH (10:11)
[2018-03-26] MEDS: ATENOLOL 50 MG TABLET (FP) PO SCH (10:11)
[2018-03-26] MEDS ORDERED: ALBUTEROL SO4 2.5/IPRATROPIUM 0.5 INH SOL 3 ML VIAL.NEB. NEB ONE (11:00)
[2018-03-26] MEDS ORDERED: POTASSIUM CHLORIDE TABS 20 MEQ TABLET.ER (FP) PO ONE (14:08)
[2018-03-26] MEDS: FUROSEMIDE 40 MG/4 ML INJECTABLE VIAL IVPUSH SCH (14:26)
--- NOTE | 2018-03-26 15:05 | ECHO ---
Version: 1 Name: BRENT MONROY Exam: Adult Echocardiogram Study Date: 03/26/2018, 12:47 PM Age: 72 Years MMode/2D Measurements & Calculations IVSd: 0.98 cm LVIDs: 3.8 cm LVIDd: 5.1 cm LVPWd: 1.03 cm LVOT diam: 2.11 cm Ao root diam: 3.0 cm LA dimension: 4.9 cm Doppler Measurements & Calculations MV E max calos: 117.2 cm/sec MVA(VTI): 1.43 cm MV A max calos: 23.6 cm/sec MV V2 max: 167.0 cm/sec MV mean P.8 mmHg MV max P.2 mmHg MV E/A: 5.0 MR max P.9 mmHg Ao max P.0 mmHg LETICIA(I,D): 1.09 cm Ao mean P.2 mmHg LV V1 mean: 55.1 cm/sec Ao V2 max: 244.8 cm/sec LV V1 mean P.41 mmHg TR max calos: 206.7 cm/sec TR max P.1 mmHg Procedure A two-dimensional transthoracic echocardiogram with color flow and Doppler was performed. The study was technically difficult with many images being suboptimal in quality. Left Ventricle The left ventricular size, thickness and function are normal. Left ventricular systolic function is mild to moderately reduced. Apical wall motion abnormality may reflect pacemaker activation. Regional wall m otion abnormalities cannot be excluded due to limited visualization. Right Ventricle The right ventricle is not well visualized. Atria The left atrium is moderately dilated. The right atrium is moderately dilated. Mitral Valve There is mild to moderate mitral valve thickening. There is no mitral valve stenosis. There is moder ate to severe mitral regurgitation. The mitral regurgitant jet is posteriorly directed, which is consistent with anterior leaflet pathology. Tricuspid Valve The tricuspid valve is not well visualized. There is no tricuspid stenosis. There is mild tricuspid regurgitation. Right ventricular systolic pressure is normal. Aortic Valve The aortic valve is not well visualized. Mild valvular aortic stenosis. Moderate aortic regurgitatio n. Pulmonic Valve The pulmonic valve is not well visualized. There is no pulmonic valvular stenosis. Mild to moderate pulmonic valvular regurgitation. Great Vessels The aortic root is normal size. Pericardium/Pleura There is no pericardial effusion. Summary Statements The mitral regurgitant jet is posteriorly directed, which is consistent with anterior leaflet pathol ogy. There is moderate to severe mitral regurgitation. The left atrium is moderately dilated. The right atrium is moderately dilated. Left ventricular systolic function is mild to moderately reduced. The left ventricular size, thickness and function are normal Apical wall motion abnormality may reflect pacemaker activation. Regional wall motion abnormalities cannot be excluded due to limited visualization. There is mild tricuspid regurgitation. Right ventricular systolic pressure is normal. Mild valvular aortic stenosis. Moderate aortic regurgitation. MD Deonte Del Rosario 03/26/2018, 3:05 PM Ordering Physician: Herminia Montoya Referring Physician: HERMINIA MONTOYA Performed By: Manjula Patrick
[2018-03-26] MEDS ORDERED: RIVAROXABAN 15 MG TABLET PO SCH (20:00)
[2018-03-26] MEDS: TAMSULOSIN HCL 0.4 MG CAP PO SCH (21:49)
[2018-03-26] MEDS: ATORVASTATIN CA 40 MG TABLET (FP) PO SCH (21:49)
[2018-03-26] MEDS: RIVAROXABAN 15 MG TABLET PO SCH (21:49)
[2018-03-26] MEDS ORDERED: ATORVASTATIN CA 20 MG TABLET (FP) PO SCH (22:00)
[2018-03-27] MEDS: DOCUSATE SODIUM 100 MG CAPSULE (FP) PO SCH ×3 (06:45→21:32)
[2018-03-27] MEDS: FUROSEMIDE 40 MG/4 ML INJECTABLE VIAL IVPUSH SCH ×2 (06:45→14:42)
[2018-03-27 09:31] LABS: ALBUMIN 3.7 g/dl (3.5-5.0); ALK PHOS 80 U/L (32-92); ANION GAP 7 MMOL/L (8-16); BILIRUBIN,TOTAL 1.1 mg/dl (0.2-1.0); BLOOD UREA NITROGEN 30 mg/dl (7-18); CALCIUM 9.3 mg/dl (8.4-10.2); CHLORIDE 98 mmol/L (98-107); CO2 32 mmol/L (22-28); CREATININE 1.2 mg/dl (0.6-1.3); GLUCOSE,RANDOM 121 mg/dl (74-106); MAGNESIUM 1.9 mg/dL (1.8-2.4); POTASSIUM 3.7 mmol/L (3.5-5.1); SGOT/AST 14 U/L (10-42); SGPT/ALT 9 U/L (10-40); SODIUM 137 mmol/L (136-145); TOT PROT 7.1 g/dl (6.4-8.3)
[2018-03-27 09:36] LABS: BASO % 0.4 % (0-2.0); EOS % 2.5 % (0-4.5); HEMOGLOBIN 12.8 GM/dl (11.7-16.9); LYMPH % 19.7 % (8-40); MCH 23.9 pg (25.7-33.7); MEAN CELL VOLUME 74.6 fl (80-96); MEAN PLT VOLUME 8.5 fl (7.5-11.1); MONO % 9.1 % (3.8-10.2); NEUT % 68.3 % (42.8-82.8); PLATELET COUNT 296 K/MM3 (134-434); RBC 5.37 M/mm3 (4.00-5.60); RDW 15.1 % (11.9-15.9); WHITE BLOOD COUNT 8.6 K/mm3 (4.0-10.8)
--- NOTE | 2018-03-27 09:37 | PN ---
Physical Exam: SUBJECTIVE: Patient seen and examined, patient reports ongoing moist cough denies any chest pain, patient does report dyspnea upon exertion OBJECTIVE: patient is a 72 year old male, with a PMH significant for HTN, HLD, CHF, A-fib (on Eliquis) CAD s/p 2 stents in 2009, s/p pacemaker (February 2018) , patient was admitted from the emergency department for congestive heart failure Vital Signs Period Temp Pulse Resp BP Sys/Foley Pulse Ox Last 24 Hr 97.8 F-98.5 F 61-84 17-20 100-110/50-66 93-96 GENERAL: The patient is awake, alert, and fully oriented, in no acute distress. HEAD: Normal with no signs of trauma. EYES: PERRL, extraocular movements intact, sclera anicteric, conjunctiva clear. No ptosis. ENT: Ears normal, nares patent, oropharynx clear without exudates, moist mucous membranes. NECK: Trachea midline, full range of motion, supple. LUNGS: Breath sounds equal, course rhonchi to apexes, persistent moist cough, moderately diminished to base, no wheezes, no crackles, no accessory muscle use. HEART: irregular rate and rhythm, S1, S2 without murmur, rub or gallop. ABDOMEN: Soft, nontender, nondistended, normoactive bowel sounds, no guarding, no rebound, no hepatosplenomegaly, no masses. EXTREMITIES: 2+ pulses, warm, well-perfused, no edema. NEUROLOGICAL: Cranial nerves II through XII grossly intact. Normal speech, gait not observed. PSYCH: Normal mood, normal affect. SKIN: Warm, dry, normal turgor, no rashes or lesions noted Laboratory Results - last 24 hr 03/26/18 03/26/18 03/27/18 12:09 12:09 08:53 Sodium 137 Potassium 3.7 Chloride 98 Carbon Dioxide 32 H Anion Gap 7 L BUN 30 H Creatinine 1.2 Creat Clearance w eGFR 59.35 Random Glucose 121 H D Calcium 9.3 Phosphorus 4.0 Magnesium 1.9 Total Bilirubin 1.1 H AST 14 ALT 9 L D Alkaline Phosphatase 80 Creatine Kinase 51 Troponin I < 0.03 Total Protein 7.1 Albumin 3.7 Active Medications Generic Name Dose Route Start Last Admin Trade Name Freq PRN Reason Stop Dose Admin Acetaminophen 650 mg 03/26/18 01:07 Tylenol - PO Q6H PRN PAIN LEVEL 1-5 Atenolol 50 mg 03/26/18 10:00 03/26/18 10:11 Tenormin - PO 50 mg DAILY DINA Administration Atorvastatin Calcium 40 mg 03/26/18 22:00 03/26/18 21:49 Lipitor - PO 40 mg HS DINA Administration Diltiazem HCl 180 mg 03/26/18 10:00 03/26/18 10:09 Cardizem Cd - PO 180 mg DAILY DINA Administration Docusate Sodium 100 mg 03/26/18 06:00 03/27/18 06:45 Colace - PO 100 mg TID DINA Administration Furosemide 40 mg 03/26/18 14:00 03/27/18 06:45 Lasix Injection - IVPUSH 40 mg BID@0600,1400 DINA Administration Polyethylene Glycol 17 gm 03/26/18 10:00 03/26/18 10:11 Miralax (For Daily Use) - PO 17 gm DAILY DINA Administration Ramipril 2.5 mg 03/26/18 10:00 03/26/18 10:11 Altace - PO 2.5 mg DAILY DINA Administration Rivaroxaban 15 mg 03/26/18 22:00 03/26/18 21:49 Xarelto - PO 15 mg HS DINA Administration Tamsulosin HCl 0.4 mg 03/26/18 22:00 03/26/18 21:49 Flomax - PO 0.4 mg HS DINA Administration Microbiology 03/26/18 10:30 Sputum - Expectorated Gram Stain - Final 03/26/18 10:30 Sputum - Expectorated Sputum Culture - Preliminary NORMAL RESPIRATORY JAVED IMAGING cxr 03/26/18: increased congestive changes bilaterally ASSESSMENT/PLAN: 1) acute systolic CHF Exacerbation - 1kg weight loss noted, will continue lasix 40 mg IV BID, creatine is stable - echo 03/26: severe MR, LV moderately reduced, mild -Monitor I&Os and daily weight -cardiolgoy consulted and following 2) A-Fib -On Eliquis -On Bisoprolol 5 mg qday and Cardizem 180 mg qday for rate control -S/p pacemaker placement 2 months ago, interogated no events noted 3) HTN -Continue Ramipril 2.5 mg qday 4) HLD -Continue Atorvastatin 40 mg QHS 5) acute copd exacerbation - persistent moist cough noted,no wheezing noted on exam, pt does reports quitting smoking 02/18, ct of chest ordered -start symbicort and combivent prn 6) BPH -Continue Flomax 0.4 mg QHS 7) Constipation - continue Miralax qday and colace 100 mg TID FEN --PO intake adequate --Electrolytes replete as indicated --Low sodium diet DVT Prophylaxis --TEDs --On Xarelto Dispo: pt currently requires further inpatient care. FULL CODE Visit type - Emergency Visit Emergency Visit: Yes ED Registration Date: 03/26/18 Care time: The patient presented to the Emergency Department on the above date and was hospitalized for further evaluation of their emergent condition. - New Patient This patient is new to me today: No - Critical Care Critical Care patient: No - Discharge Referral Referred to [facility] No
[2018-03-27 09:38] LABS: ADD RBC MORPHOLOGY YES
[2018-03-27] MEDS: RAMIPRIL 2.5 MG CAPSULE (FP) PO SCH (09:53)
[2018-03-27] MEDS: POLYETHYLENE GLYCOL 3350 119 GM BTL PO SCH (09:53)
[2018-03-27] MEDS: ATENOLOL 50 MG TABLET (FP) PO SCH (09:53)
[2018-03-27 11:06] LABS: OVALOCYTE 1+; TARGET CELLS 1+
[2018-03-27 11:07] LABS: PLATELET ESTIMATE ADEQUATE
[2018-03-27] MEDS ORDERED: ALBUTEROL SO4 2.5/IPRATROPIUM 0.5 INH SOL 3 ML VIAL.NEB. NEB ONE (11:28)
[2018-03-27] MEDS ORDERED: ALBUTEROL SO4 2.5/IPRATROPIUM 0.5 INH SOL 3 ML VIAL.NEB. NEB PRN (11:29)
[2018-03-27] MEDS: BUDESONIDE/FORMETEROL FUMARATE 80/4.5 mcg INHALER IH SCH ×2 (11:45→21:32)
[2018-03-27] MEDS ORDERED: PT OWN MED DRAWER 7, Y5N ONE ×2 (11:54→21:23)
[2018-03-27 14:18] LABS: PH,URINE 5.5 (4.5-8); URINE APPEARANCE Clear; URINE BILIRUBIN Negative (NEGATIVE); URINE COLOR Yellow; URINE GLUCOSE (UA) Negative (NEGATIVE); URINE KETONE Negative (NEGATIVE); URINE LEUK ESTERASE Negative (NEGATIVE); URINE NITRITE Negative (NEGATIVE); URINE PROTEIN Negative (NEGATIVE); URINE UROBILINOGEN 0.2 (0.2-1.0)
[2018-03-27] MEDS ORDERED: SENNOSIDES 8.6MG TABLET (FP) PO PRN (14:56)
[2018-03-27] MEDS: metFORMIN HCL 500 MG TABLET (FP) PO SCH (16:49)
[2018-03-27] MEDS: ATORVASTATIN CA 40 MG TABLET (FP) PO SCH (21:32)
[2018-03-27] MEDS: RIVAROXABAN 15 MG TABLET PO SCH (21:32)
[2018-03-27] MEDS: TAMSULOSIN HCL 0.4 MG CAP PO SCH (21:32)
[2018-03-28] MEDS: FUROSEMIDE 40 MG/4 ML INJECTABLE VIAL IVPUSH SCH ×2 (06:19→13:10)
[2018-03-28] MEDS: DOCUSATE SODIUM 100 MG CAPSULE (FP) PO SCH ×4 (06:19→21:20)
[2018-03-28] MEDS: metFORMIN HCL 500 MG TABLET (FP) PO SCH ×2 (06:19→16:36)
[2018-03-28 08:47] LABS: BASO % 0.2 % (0-2.0); EOS % 2.5 % (0-4.5); HEMATOCRIT 39.4 % (35.4-49); HEMOGLOBIN 12.5 GM/dl (11.7-16.9); LYMPH % 18.1 % (8-40); MCH 24.1 pg (25.7-33.7); MCHC 31.7 g/dl (32.0-35.9); MEAN CELL VOLUME 75.8 fl (80-96); MEAN PLT VOLUME 8.8 fl (7.5-11.1); MONO % 8.4 % (3.8-10.2); NEUT % 70.8 % (42.8-82.8); PLATELET COUNT 288 K/MM3 (134-434); WHITE BLOOD COUNT 8.4 K/mm3 (4.0-10.8)
[2018-03-28 08:58] LABS: ANION GAP 7 MMOL/L (8-16); BLOOD UREA NITROGEN 34 mg/dl (7-18); CHLORIDE 100 mmol/L (98-107); CO2 30 mmol/L (22-28); CREATININE 1.2 mg/dl (0.6-1.3); GLUCOSE,RANDOM 100 mg/dl (74-106); PHOSPHOROUS 4.3 mg/dl (2.5-4.6); POTASSIUM 3.6 mmol/L (3.5-5.1); SODIUM 137 mmol/L (136-145)
[2018-03-28] MEDS ORDERED: PT OWN MED DRAWER 7, Y5N ONE ×3 (09:11→21:12)
[2018-03-28] MEDS: BUDESONIDE/FORMETEROL FUMARATE 80/4.5 mcg INHALER IH SCH ×2 (09:23→21:21)
[2018-03-28] MEDS: amLODIPine BESYLATE 5 MG TABLET (FP) PO SCH (09:23)
[2018-03-28] MEDS: RAMIPRIL 2.5 MG CAPSULE (FP) PO SCH (09:23)
[2018-03-28] MEDS: ATENOLOL 50 MG TABLET (FP) PO SCH (09:24)
[2018-03-28] MEDS: POLYETHYLENE GLYCOL 3350 119 GM BTL PO SCH (09:24)
[2018-03-28] MEDS ORDERED: ENALAPRIL MALEATE 5 MG TABLET (FP) PO SCH (10:00)
[2018-03-28] MEDS: TIOTROPIUM BROMIDE 2.5 MCG (SPIRIVA) RESPIMAT INHALER IH SCH (10:19)
--- NOTE | 2018-03-28 11:11 | PN ---
Progress Note (short form) - Note Progress Note: PULMONARY PULMONARY CONSULTATION DICTATED 03/28/18 IMP ACUTE ON CHRONIC CHF COPD EXACERBATION LINGULAR NODULE AFIB S/P PPM ASHD S/P STENT MEDIASTINAL ADENOPATHTY ? REACTIVE HLD H/O SMOKING HEMOPTYSIS PLAN IV LASIX INHALED BRONCHODILATORS O2 ABX MEDROL X 48HRS PET SCAN OUTPATIENT DAILY WT DR HERRMANN Problem List - Problems (1) COPD (chronic obstructive pulmonary disease) Code(s): J44.9 - CHRONIC OBSTRUCTIVE PULMONARY DISEASE, UNSPECIFIED (2) CHF exacerbation Code(s): I50.9 - HEART FAILURE, UNSPECIFIED Qualifiers: Heart failure type: unspecified Qualified Code(s): I50.9 - Heart failure, unspecified (3) Chest pain Code(s): R07.9 - CHEST PAIN, UNSPECIFIED Qualifiers: Chest pain type: unspecified Qualified Code(s): R07.9 - Chest pain, unspecified (4) Dyspnea Code(s): R06.00 - DYSPNEA, UNSPECIFIED Qualifiers: Dyspnea type: unspecified Qualified Code(s): R06.00 - Dyspnea, unspecified (5) Lung nodule < 6cm on CT Code(s): R91.1 - SOLITARY PULMONARY NODULE (6) Hemoptysis Code(s): R04.2 - HEMOPTYSIS
--- NOTE | 2018-03-28 11:47 | CONS ---
DATE OF CONSULTATION: 03/28/2018 REFERRING PHYSICIAN: Herminia Mejia MD HISTORY: The patient is a 72-year-old [place] male with a past medical history of hypertension, congestive heart failure easily maintained on Eliquis, hyperlipidemia, ASHD status post stents in 2009, status post permanent pacemaker February 2018 in [facility], longstanding history of tobacco use approximately 1 pack per day since age 10 stopped 1 month ago admitted to [facility] with the complaint of shortness of breath, cough, and chest congestion. The patient states that he was doing relatively well until the evening prior to admission when he started developing shortness of breath, cough productive of yellowish sputum. He was trying to go to bed. The patient apparently always sleeps on several pillows at night, although it was difficult to breathe the night prior to admission. He could only sleep before waking up secondary to coughing paroxysms. He also complained of cough productive of green sputum with mixed heme. He denies any chest pain, nausea, vomiting, or diaphoresis. The patient was admitted with the above. On admission, he was felt to have congestive heart failure. He was started on IV Lasix. He was also started on inhaled bronchodilators. He underwent a CT scan of the chest, which revealed left upper lobe nodule approximately 0.9 cm and enlarged mediastinal nodes 1.8 cm x 1.1 cm with mild atelectatic changes in dependent portions of the lung and COPD changes bilaterally. PAST MEDICAL HISTORY: Again, includes CHF, atrial fibrillation, hyperlipidemia, hypertension, ASHD status post stent, status post permanent pacemaker. SOCIAL HISTORY: Born in [place]. Moved to the [place] approximately a year ago. 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 A history of tobacco use 1 pack per day since age 10. Stopped in February. REVIEW OF SYSTEMS: Positive cough. Positive chest congestion. Positive shortness of breath. Positive orthopnea. Positive PND. No fever, no chills. Positive cough productive of green sputum. Positive trace hemoptysis. No fever, no weight loss, no night sweats. No abdominal pain. CURRENT MEDICATIONS: Include Symbicort 80/4.5, Flomax, Tylenol, Altace, Xarelto, DuoNeb, Spiriva, atenolol, metformin, Cardizem CD, Colace, MiraLAX, Senna, Norvasc, Lipitor, and Lasix. PHYSICAL EXAMINATION: General: The patient is a well-developed, well-nourished male awake and alert in no acute distress. Vital Signs: He is afebrile. Blood pressure is 105/53, respiratory rate 18, O2 saturation 95% on 2 L. HEENT: Normocephalic and atraumatic. Neck: Supple. Heart: Regular S1, S2. Chest: Bilateral crackles throughout with a few scattered wheezes. Abdomen: Soft. Bowel sounds are positive. Extremities: No cyanosis or edema. LABORATORIES: WBCs 8.4, hemoglobin 12.5, hematocrit 39.4 with a platelet count of 288,000. BUN 34, creatinine 1.2. Chest CT: A 0.9-cm nodule in the left lingula with mildly enlarged mediastinal nodes. Echocardiogram reveals [id number] LV systolic dysfunction. No evidence of any pulmonary hypertension. IMPRESSION: 1. Respiratory distress likely secondary to: 2. Acute on chronic congestive heart failure. 3. Likely mild chronic obstructive pulmonary disease exacerbation. 4. Lingula nodule. Cannot exclude malignancy as the patient is at increased risk secondary to longstanding history of tobacco use. 5. Arteriosclerotic heart disease status post stent x2, status post pacemaker. 6. Atrial fibrillation. 7. Hyperlipidemia. 8. Hypertension. PLAN: Continue IV Lasix. Supplemental O2. Inhaled bronchodilators. Short course Medrol. Antibiotics. Consider outpatient PET or follow up chest CT in 3 months to document stability of nodule. Daily weights. PFT as an outpatient. Nely [id number]
--- NOTE | 2018-03-28 11:53 | PN ---
Physical Exam: SUBJECTIVE: Patient seen and examined, reports feeling less dyspneic on exertion , denies any chest pain, reports moist cough, at bedside. OBJECTIVE:patient is a 72 year old male, with a PMH significant for HTN, HLD, CHF, A-fib (on Eliquis) CAD s/p 2 stents in 2009, s/p pacemaker (February 2018) , patient was admitted from the emergency department for congestive heart failure and copd exacerbation. Vital Signs Period Temp Pulse Resp BP Sys/Foley Pulse Ox Last 24 Hr 97.5 F-98.2 F 64-74 18-20 92-110/53-68 90-95 GENERAL: The patient is awake, alert, and fully oriented, in no acute distress. HEAD: Normal with no signs of trauma. EYES: PERRL, extraocular movements intact, sclera anicteric, conjunctiva clear. No ptosis. ENT: Ears normal, nares patent, oropharynx clear without exudates, moist mucous membranes. NECK: Trachea midline, full range of motion, supple. LUNGS: Breath sounds equal, course rhonchi to apexes, diminished to base, no wheezes, no crackles, no accessory muscle use. HEART: irregular rate and rhythm, S1, S2 without murmur, rub or gallop. ABDOMEN: Soft, nontender, nondistended, normoactive bowel sounds, no guarding, no rebound, no hepatosplenomegaly, no masses. EXTREMITIES: 2+ pulses, warm, well-perfused, no edema. NEUROLOGICAL: Cranial nerves II through XII grossly intact. Normal speech, gait not observed. PSYCH: Normal mood, normal affect. SKIN: Warm, dry, normal turgor, no rashes or lesions noted Laboratory Results - last 24 hr 03/27/18 03/27/18 03/28/18 08:53 13:28 08:15 WBC 8.4 RBC 5.20 Hgb 12.5 Hct 39.4 MCV 75.8 L MCH 24.1 L MCHC 31.7 L RDW 15.0 Plt Count 288 MPV 8.8 Absolute Neuts (auto) 6.0 Neutrophils % 70.8 Lymphocytes % 18.1 Monocytes % 8.4 Eosinophils % 2.5 Basophils % 0.2 Sodium Potassium Chloride Carbon Dioxide Anion Gap BUN Creatinine Creat Clearance w eGFR Random Glucose Hemoglobin A1c % 5.8 Calcium Phosphorus Magnesium Urine Color Yellow Urine Appearance Clear Urine pH 5.5 Ur Specific [place] 1.015 Urine Protein Negative Urine Glucose (UA) Negative Urine Ketones Negative Urine Blood Negative Urine Nitrite Negative Urine Bilirubin Negative Urine Urobilinogen 0.2 Ur Leukocyte Esterase Negative 03/28/18 08:15 WBC RBC Hgb Hct MCV MCH MCHC RDW Plt Count MPV Absolute Neuts (auto) Neutrophils % Lymphocytes % Monocytes % Eosinophils % Basophils % Sodium 137 Potassium 3.6 Chloride 100 Carbon Dioxide 30 H Anion Gap 7 L BUN 34 H Creatinine 1.2 Creat Clearance w eGFR 59.35 Random Glucose 100 Hemoglobin A1c % Calcium 9.0 Phosphorus 4.3 Magnesium 2.0 Urine Color Urine Appearance Urine pH Ur Specific [place] Urine Protein Urine Glucose (UA) Urine Ketones Urine Blood Urine Nitrite Urine Bilirubin Urine Urobilinogen Ur Leukocyte Esterase Active Medications Generic Name Dose Route Start Last Admin Trade Name Freq PRN Reason Stop Dose Admin Acetaminophen 650 mg 03/26/18 01:07 Tylenol - PO Q6H PRN PAIN LEVEL 1-5 Albuterol/Ipratropium 1 amp 03/27/18 11:29 Duoneb - NEB Q6H PRN SHORTNESS OF BREATH Amlodipine Besylate 5 mg 03/28/18 10:00 03/28/18 09:23 Norvasc - PO 5 mg DAILY [facility] Administration Amoxicillin/Clavulanate Potassium 1 tab 03/28/18 17:30 Augmentin - 875mg Tablet PO BID@0800,1730 [facility] Atenolol 50 mg 03/26/18 10:00 03/28/18 09:24 Tenormin - PO 50 mg DAILY [facility] Administration Atorvastatin Calcium 40 mg 03/26/18 22:00 03/27/18 21:32 Lipitor - PO 40 mg HS [facility] Administration Budesonide/Formoterol Fumarate 2 puff 03/27/18 11:30 03/28/18 09:23 Symbicort 80/4.5mcg - IH 2 puff BID [facility] Administration Diltiazem HCl 180 mg 03/26/18 10:00 03/28/18 09:24 Cardizem Cd - PO 180 mg DAILY [facility] Administration Docusate Sodium 100 mg 03/26/18 06:00 03/28/18 06:21 Colace - PO Not Given TID [facility] Furosemide 40 mg 03/26/18 14:00 03/28/18 06:19 Lasix Injection - IVPUSH 40 mg BID@0600,1400 [facility] Administration Lactobacillus Acidophilus 1 tab 03/28/18 11:30 Bacid - PO DAILY [facility] Metformin HCl 500 mg 03/27/18 16:30 03/28/18 06:19 Glucophage - PO 500 mg BIDI [facility] Administration Methylprednisolone Sodium Succinate 40 mg 03/28/18 11:15 Solu-Medrol - IVPUSH Q8H-IV [facility] Polyethylene Glycol 17 gm 03/26/18 10:00 03/28/18 09:24 Miralax (For Daily Use) - PO 17 gm DAILY [facility] Administration Ramipril 2.5 mg 03/26/18 10:00 03/28/18 09:23 Altace - PO 2.5 mg DAILY [facility] Administration Rivaroxaban 15 mg 03/26/18 22:00 03/27/18 21:32 Xarelto - PO 15 mg HS [facility] Administration Senna 2 tab 03/27/18 14:56 Senna - PO HS PRN CONSTIPATION Tamsulosin HCl 0.4 mg 03/26/18 22:00 03/27/18 21:32 Flomax - PO 0.4 mg HS [facility] Administration Tiotropium [place] 2 puff 03/28/18 10:00 03/28/18 10:19 Spiriva Respimat IH 2 puff DAILY [facility] Administration Microbiology 03/26/18 10:30 Sputum - Expectorated Gram Stain - Final 03/26/18 10:30 Sputum - Expectorated Sputum Culture - Final NORMAL [facility] cxr 03/26/18: increased congestive changes bilaterally ct of chest: [id number] COPD/emphysematous changes, 9 mm pulmonary nodule and lingular segment of the left upper lobe follow-up CT scan in 3 months or PET scan echo 03/26: severe MR, LV moderately reduced, mild ASSESSMENT/PLAN: 1) acute systolic CHF Exacerbation - 2kg weight loss noted,,decrease lasix to 40mg qd - echo noted -Monitor I&Os and daily weight -cardiolgoy consulted and following 2) A-Fib -On Eliquis, rate controlled continue Cardizem and atenolol -S/p pacemaker placement 2 months ago, interogated no events noted 3) HTN -Continue Ramipril 2.5 mg qday 4) HLD -Continue Atorvastatin 40 mg QHS 5) acute copd exacerbation - ct of chest noted, continue symbicort will add spiriva, solumedrol with taper as appropriate - pulmonary consulted and following 6) BPH -Continue Flomax 0.4 mg QHS 7) Constipation - continue Miralax qday and colace 100 mg TID FEN --PO intake adequate --Electrolytes replete as indicated --Low sodium diet DVT Prophylaxis --TEDs --On Xarelto Dispo: pt currently requires further inpatient care. FULL CODE Visit type - Emergency Visit Emergency Visit: Yes ED Registration Date: 03/26/18 Care time: The patient presented to the Emergency Department on the above date and was hospitalized for further evaluation of their emergent condition. - New Patient This patient is new to me today: No - Critical Care Critical Care patient: No - Discharge Referral Referred to [facility] Med P.C.: No
[2018-03-28] MEDS: LACTOBACILLUS ACIDOPHILUS 1 TABLET PO SCH (11:55)
[2018-03-28] MEDS: methylPREDNISolone NA SUCC 40 MG/1 ML VIAL IVPUSH SCH ×2 (11:55→17:06)
[2018-03-28] MEDS: AMOX TR/POT CLAV 875MG/125MG TABLETS (FP) PO SCH (17:07)
[2018-03-28] MEDS: FAMOTIDINE 20 MG TABLET PO SCH (21:20)
[2018-03-28] MEDS: ATORVASTATIN CA 40 MG TABLET (FP) PO SCH (21:20)
[2018-03-28] MEDS: TAMSULOSIN HCL 0.4 MG CAP PO SCH (21:20)
[2018-03-28] MEDS: RIVAROXABAN 15 MG TABLET PO SCH (21:21)
[2018-03-29] MEDS: methylPREDNISolone NA SUCC 40 MG/1 ML VIAL IVPUSH SCH ×3 (01:29→17:13)
[2018-03-29] MEDS: DOCUSATE SODIUM 100 MG CAPSULE (FP) PO SCH ×3 (06:58→21:13)
[2018-03-29] MEDS: metFORMIN HCL 500 MG TABLET (FP) PO SCH ×2 (08:00→17:14)
[2018-03-29] MEDS: AMOX TR/POT CLAV 875MG/125MG TABLETS (FP) PO SCH ×2 (08:50→17:13)
[2018-03-29 09:04] LABS: BASO % 0.5 % (0-2.0); HEMOGLOBIN 12.7 GM/dl (11.7-16.9); LYMPH % 10.9 % (8-40); MCH 23.2 pg (25.7-33.7); MCHC 30.9 g/dl (32.0-35.9); MEAN PLT VOLUME 9.1 fl (7.5-11.1); MONO % 0.4 % (3.8-10.2); NEUT % 88.2 % (42.8-82.8); PLATELET COUNT 313 K/MM3 (134-434); RBC 5.47 M/mm3 (4.00-5.60); RDW 15.3 % (11.9-15.9); WHITE BLOOD COUNT 9.9 K/mm3 (4.0-10.8)
[2018-03-29 09:05] LABS: ANION GAP 10 MMOL/L (8-16); BLOOD UREA NITROGEN 39 mg/dl (7-18); CALCIUM 9.7 mg/dl (8.4-10.2); CHLORIDE 98 mmol/L (98-107); CO2 29 mmol/L (22-28); CREATININE 1.3 mg/dl (0.6-1.3); GLUCOSE,RANDOM 153 mg/dl (74-106); MAGNESIUM 2.1 mg/dL (1.8-2.4); PHOSPHOROUS 4.2 mg/dl (2.5-4.6); POTASSIUM 4.4 mmol/L (3.5-5.1); SODIUM 137 mmol/L (136-145)
[2018-03-29] MEDS ORDERED: PT OWN MED DRAWER 7, Y5N ONE ×2 (09:28→21:09)
[2018-03-29] MEDS: amLODIPine BESYLATE 5 MG TABLET (FP) PO SCH (09:47)
[2018-03-29] MEDS: RAMIPRIL 2.5 MG CAPSULE (FP) PO SCH (09:47)
[2018-03-29] MEDS: ATENOLOL 50 MG TABLET (FP) PO SCH (09:47)
[2018-03-29] MEDS: FAMOTIDINE 20 MG TABLET PO SCH ×2 (09:47→21:13)
[2018-03-29] MEDS: BUDESONIDE/FORMETEROL FUMARATE 80/4.5 mcg INHALER IH SCH ×2 (09:47→21:13)
[2018-03-29] MEDS: TIOTROPIUM BROMIDE 2.5 MCG (SPIRIVA) RESPIMAT INHALER IH SCH (09:48)
[2018-03-29] MEDS: POLYETHYLENE GLYCOL 3350 119 GM BTL PO SCH (09:49)
[2018-03-29] MEDS: FUROSEMIDE 40 MG/4 ML INJECTABLE VIAL IVPUSH SCH (09:49)
[2018-03-29] MEDS: LACTOBACILLUS ACIDOPHILUS 1 TABLET PO SCH (09:49)
--- NOTE | 2018-03-29 17:17 | PN ---
Progress Note (short form) - Note Progress Note: PULMONARY States breathing is improving. Less cough and wheezing. No fevers or chills. Vital Signs Period Temp Pulse Resp BP Sys/Foley Pulse Ox Last 24 Hr 97.6 F-98.4 F 57-66 18-19 103-114/51-67 92-96 Intake & Output 03/26/18 03/27/18 03/28/18 03/29/18 23:59 23:59 23:59 23:59 Intake Total 1350 1325 1600 Output Total 2750 1320 2150 Balance -1400 5 -550 Weight 80.739 kg 79.832 kg 78.928 kg 79.946 kg Gen: NAD at rest Heart: RRR Lung: decreased breath sounds at the bases, no wheezes Abd: soft, nontender Ext: + edema CBC, BMP 03/29/18 07:10 03/29/18 07:10 Active Medications Acetaminophen (Tylenol -) 650 mg PO Q6H PRN PRN Reason: PAIN LEVEL 1-5 Albuterol/Ipratropium (Duoneb -) 1 amp NEB Q6H PRN PRN Reason: SHORTNESS OF BREATH Last Admin: 03/28/18 17:07 Dose: 1 amp Amlodipine Besylate (Norvasc -) 5 mg PO DAILY [facility] Last Admin: 03/29/18 09:47 Dose: 5 mg Amoxicillin/Clavulanate Potassium (Augmentin - 875mg Tablet) 1 tab PO BID@0800, 1730 [facility] Last Admin: 03/29/18 08:50 Dose: 1 tab Atenolol (Tenormin -) 50 mg PO DAILY [facility] Last Admin: 03/29/18 09:47 Dose: 50 mg Atorvastatin Calcium (Lipitor -) 40 mg PO HS [facility] Last Admin: 03/28/18 21:20 Dose: 40 mg Budesonide/Formoterol Fumarate (Symbicort 80/4.5mcg -) 2 puff IH BID [facility] Last Admin: 03/29/18 09:47 Dose: 2 puff Diltiazem HCl (Cardizem Cd -) 180 mg PO DAILY [facility] Last Admin: 03/29/18 09:47 Dose: 180 mg Docusate Sodium (Colace -) 100 mg PO TID [facility] Last Admin: 03/29/18 14:41 Dose: 100 mg Famotidine (Pepcid -) 20 mg PO BID [facility] Last Admin: 03/29/18 09:47 Dose: 20 mg Furosemide (Lasix Injection -) 40 mg IVPUSH DAILY [facility] Last Admin: 03/29/18 09:49 Dose: 40 mg Lactobacillus Acidophilus (Bacid -) 1 tab PO DAILY [facility] Last Admin: 03/29/18 09:49 Dose: 1 tab Metformin HCl (Glucophage -) 500 mg PO BIDI [facility] Last Admin: 03/29/18 08:00 Dose: 500 mg Methylprednisolone Sodium Succinate (Solu-Medrol -) 40 mg IVPUSH Q8H-IV [facility] Last Admin: 03/29/18 09:49 Dose: 40 mg Polyethylene Glycol (Miralax (For Daily Use) -) 17 gm PO DAILY [facility] Last Admin: 03/29/18 09:49 Dose: 17 gm Ramipril (Altace -) 2.5 mg PO DAILY [facility] Last Admin: 03/29/18 09:47 Dose: 2.5 mg Rivaroxaban (Xarelto -) 15 mg PO HS [facility] Last Admin: 03/28/18 21:21 Dose: 15 mg Senna (Senna -) 2 tab PO HS PRN PRN Reason: CONSTIPATION Tamsulosin HCl (Flomax -) 0.4 mg PO HS [facility] Last Admin: 03/28/18 21:20 Dose: 0.4 mg Tiotropium [place] (Spiriva Respimat) 2 puff IH DAILY [facility] Last Admin: 03/29/18 09:48 Dose: 2 puff A/P Acute on Chronic Systolic Heart Failure Atrial Fibrillation CAD Acute COPD Exacerbation Lung Nodule Mediastinal Lymphadenopathy Hyperlipidemia - continue lasix - monitor urine output, creatinine - daily weights - rate control - continue anticoagulation - can d/c medrol after AM dose - inhaled bronchodilators - o2 to keep SpO2 >90% - outpt PFTs - will need outpt f/u of lung nodule witih PET scan
--- NOTE | 2018-03-29 18:28 | PN ---
Progress Note, Physician Chief Complaint: Pt OOB in chair; no complaints of dyspnea or chest pain; no palpitations. History of Present Illness: The patient is a 72 year old male ([place]), with a significant past medical history of hypertension, hyperlipidemia, diabetes, systolic and diastolic CHF, CAD s/p 2 stents in 2009, s/p pacemaker (February 2018 at [facility]) who presents to the emergency department with shortness of breath starting last night and one month of productive cough and mild intermittent chest pain. The patient states he felt as if he was suffocating last night which kept him from getting sleep. He states the shortness of breath is worse during the night time and alleviated during the day. He states he feels there is fluid in his lungs and reportedly had fluid in his lungs during his hospital stay at [facility] in February which was removed. Secondarily, he reports having a cough productive of green sputum since the placement of his pacemaker in February. He states there was some blood in his sputum during his admission at [facility] which his reports was worked up and normal. He states he has been having mild intermittent chest pain and left shoulder pain since his pacemaker placement last month. He also reports a mild intermittent tightness to his bilateral upper abdominal quadrants. He denies taking any OTC medications for pain. He states his regular medications were completely changed after being discharged from [facility] and was last seen by his PCP 2 weeks ago with another scheduled appointment on 04/01/18. The patient denies headache and dizziness. The patient denies fever, chills, nausea, vomit, diarrhea and constipation. The patient denies dysuria, frequency , urgency and hematuria. Allergies: NKDA Past surgical history: s/p stents, s/p pacemaker Social history: former 1ppd tobacco smoker, occasional ETOH PCP - Dr. Simeon Mendoza - Current Medication List Current Medications: Active Medications Acetaminophen (Tylenol -) 650 mg PO Q6H PRN PRN Reason: PAIN LEVEL 1-5 Albuterol/Ipratropium (Duoneb -) 1 amp NEB Q6H PRN PRN Reason: SHORTNESS OF BREATH Last Admin: 03/28/18 17:07 Dose: 1 amp Amlodipine Besylate (Norvasc -) 5 mg PO DAILY [facility] Last Admin: 03/29/18 09:47 Dose: 5 mg Amoxicillin/Clavulanate Potassium (Augmentin - 875mg Tablet) 1 tab PO BID@0800, 1730 [facility] Last Admin: 03/29/18 17:13 Dose: 1 tab Atenolol (Tenormin -) 50 mg PO DAILY [facility] Last Admin: 03/29/18 09:47 Dose: 50 mg Atorvastatin Calcium (Lipitor -) 40 mg PO HS [facility] Last Admin: 03/28/18 21:20 Dose: 40 mg Budesonide/Formoterol Fumarate (Symbicort 80/4.5mcg -) 2 puff IH BID [facility] Last Admin: 03/29/18 09:47 Dose: 2 puff Diltiazem HCl (Cardizem Cd -) 180 mg PO DAILY [facility] Last Admin: 03/29/18 09:47 Dose: 180 mg Docusate Sodium (Colace -) 100 mg PO TID [facility] Last Admin: 03/29/18 14:41 Dose: 100 mg Famotidine (Pepcid -) 20 mg PO BID [facility] Last Admin: 03/29/18 09:47 Dose: 20 mg Furosemide (Lasix Injection -) 40 mg IVPUSH DAILY [facility] Last Admin: 03/29/18 09:49 Dose: 40 mg Lactobacillus Acidophilus (Bacid -) 1 tab PO DAILY [facility] Last Admin: 03/29/18 09:49 Dose: 1 tab Metformin HCl (Glucophage -) 500 mg PO BIDI [facility] Last Admin: 03/29/18 17:14 Dose: 500 mg Methylprednisolone Sodium Succinate (Solu-Medrol -) 40 mg IVPUSH DAILY [facility] Stop: 03/30/18 10:01 Polyethylene Glycol (Miralax (For Daily Use) -) 17 gm PO DAILY [facility] Last Admin: 03/29/18 09:49 Dose: 17 gm Ramipril (Altace -) 2.5 mg PO DAILY [facility] Last Admin: 03/29/18 09:47 Dose: 2.5 mg Rivaroxaban (Xarelto -) 15 mg PO HS [facility] Last Admin: 03/28/18 21:21 Dose: 15 mg Senna (Senna -) 2 tab PO HS PRN PRN Reason: CONSTIPATION Tamsulosin HCl (Flomax -) 0.4 mg PO HS [facility] Last Admin: 03/28/18 21:20 Dose: 0.4 mg Tiotropium [place] (Spiriva Respimat) 2 puff IH DAILY [facility] Last Admin: 03/29/18 09:48 Dose: 2 puff - Objective Vital Signs: Vital Signs Temperature 97.7 F 03/29/18 14:00 Pulse Rate 57 L 03/29/18 14:00 Respiratory Rate 18 03/29/18 14:00 Blood Pressure 108/67 03/29/18 14:00 O2 Sat by Pulse Oximetry (%) 93 L 03/29/18 14:00 Constitutional: Yes: No Distress Eyes: Yes: WNL HENT: Yes: WNL Neck: Yes: WNL Cardiovascular: Yes: Pulse Irregular, Murmur, S1 (varies in intensity), S2 Respiratory: Yes: Regular Gastrointestinal: Yes: Soft ...Rectal Exam: Yes: Deferred Genitourinary: No: Anuria Breast(s): Yes: WNL Musculoskeletal: Yes: WNL Extremities: Yes: WNL Edema: No Peripheral Pulses WNL: Yes Integumentary: Yes: WNL Neurological: Yes: WNL Psychiatric: Yes: WNL Labs: CBC, BMP 03/29/18 07:10 03/29/18 07:10 Abnormal Lab Results 03/29/18 03/29/18 07:10 07:10 MCV 75.0 L MCH 23.2 L MCHC 30.9 L Neutrophils % 88.2 H D Monocytes % 0.4 L D Carbon Dioxide 29 H BUN 39 H Random Glucose 153 H D - ....Imaging Chest X-ray: Image Reviewed Cat Scan: Image Reviewed EKG: Image Reviewed (AF) Problem List - Problems (1) COPD (chronic obstructive pulmonary disease) Assessment/Plan: bronchodilators, antibiotics, and steroids per pumonologist. Code(s): J44.9 - CHRONIC OBSTRUCTIVE PULMONARY DISEASE, UNSPECIFIED (2) Lung nodule < 6cm on CT Assessment/Plan: F/u per extractor and wringer operator; r/o malignancy. Code(s): R91.1 - SOLITARY PULMONARY NODULE (3) Acute on chronic systolic and diastolic heart failure, NYHA class 2 Assessment/Plan: ECHO: mild-moderately decreased LVEF; moderate biatrial enlargement; moderately severe MR; mild ; moderate AR; mild TR. Plan: Discontinue diltiazem and atenolol. Start metoprolol (25 mg bid; can change to ER for easier compliance when pt goes home); no hx of asthma, and pt has apparently tolerated beta blockers. Start spironolactone 25 mg daily. Increase lisinopril gradually as tolerated. On furosemide prn. F/u daily weight, Is and Os, electrolytes, BUN/Cr. Code(s): I50.43 - ACUTE ON CHRONIC COMBINED SYSTOLIC AND DIASTOLIC HRT FAIL (4) Atrial fibrillation Assessment/Plan: On beta shin for HR control. On rivaroxaban for anticoagulation. EKG in am. Code(s): I48.91 - UNSPECIFIED ATRIAL FIBRILLATION
[2018-03-29] MEDS ORDERED: SPIRONOLACTONE 25 MG TABLET (FP) PO ONE (18:45)
[2018-03-29 19:21] LABS: CHOLESTEROL 154 mg/dl; HDL CHOLESTEROL 45 mg/dl (29-89); TRIGLYCERIDES 65 mg/dl (35-160)
[2018-03-29] MEDS: METOPROLOL TARTRATE 25 MG TABLET (FP) PO SCH (21:13)
[2018-03-29] MEDS: ATORVASTATIN CA 40 MG TABLET (FP) PO SCH (21:13)
[2018-03-29] MEDS: RIVAROXABAN 15 MG TABLET PO SCH (21:13)
[2018-03-29] MEDS: TAMSULOSIN HCL 0.4 MG CAP PO SCH (21:13)
--- NOTE | 2018-03-29 22:35 | PN ---
Physical Exam: SUBJECTIVE: Patient seen and examined oob to chair. Voices no complaints. OBJECTIVE: Vital Signs Period Temp Pulse Resp BP Sys/Foley Pulse Ox Last 24 Hr 97.6 F-98.4 F 57-66 16-19 108-114/51-67 92-96 GENERAL: The patient is awake, alert, and fully oriented, in no acute distress. LUNGS: CTA HEART: Irregular, S1, S2 ABDOMEN: Soft, nontender, nondistended EXTREMITIES: 2+ pulses, warm, well-perfused, no edema, no calf tenderness NEUROLOGICAL: Cranial nerves II through XII grossly intact. Normal speech Laboratory Results - last 24 hr 03/29/18 03/29/18 03/29/18 07:10 07:10 17:11 WBC 9.9 RBC 5.47 Hgb 12.7 Hct 41.0 MCV 75.0 L MCH 23.2 L MCHC 30.9 L RDW 15.3 Plt Count 313 MPV 9.1 Absolute Neuts (auto) 8.8 Neutrophils % 88.2 H D Lymphocytes % 10.9 D Monocytes % 0.4 L D Eosinophils % 0.0 D Basophils % 0.5 Sodium 137 Potassium 4.4 D Chloride 98 Carbon Dioxide 29 H Anion Gap 10 BUN 39 H Creatinine 1.3 Creat Clearance w eGFR 54.11 POC Glucometer 206 Random Glucose 153 H D Calcium 9.7 Phosphorus 4.2 Magnesium 2.1 Triglycerides Cholesterol Total LDL Cholesterol HDL Cholesterol TSH 03/29/18 03/29/18 18:30 18:30 WBC RBC Hgb Hct MCV MCH MCHC RDW Plt Count MPV Absolute Neuts (auto) Neutrophils % Lymphocytes % Monocytes % Eosinophils % Basophils % Sodium Potassium Chloride Carbon Dioxide Anion Gap BUN Creatinine Creat Clearance w eGFR POC Glucometer Random Glucose Calcium Phosphorus Magnesium Triglycerides 65 Cholesterol 154 Total LDL Cholesterol 96 HDL Cholesterol 45 TSH 0.40 ASSESSMENT/PLAN 72 year-old male with a PMH significant for HTN, HLD, CAD s/p stents s/p PPM, systolic HF, afib on Xarelto, NIDDM, BPH. Admitted for acute on chronic systolic heart failure. Acute on chronic systolic heart failure --03/26 Echo: LV mild to moderately reduced; BLAE; moderate to severe MR; mild TR; mild , moderate AI; mild to moderate PI --pulmonary congestion, BNP 1377 --continue Lasix IV and spironolactone Atrial fibrillation --rate well-controlled, continue metorprolol --on Xarelto, renally dosed Hypertension --BP well-controlled --continue metoprolol, amlodipine, ramipril Hyperlipidemia --continue atorvastatin Coronary artery disease --continue metoprolol, atorvastatin; not on daily ASA BPH --continue tamsulosin COPD exacerbation --50-year smoking history --now diagnosed by pulm with COPD --d/c medrol after tomorrow am dose --continue inhalers nebs --continue augmentin Lung nodule --needs outpatient followup with PET or 3-month CT BPH --continue tamsulosin DVT prophylaxis: on Xarelto Plan: likely discharge tomorrow. Full code. Visit type - Emergency Visit Emergency Visit: Yes ED Registration Date: 03/26/18 Care time: The patient presented to the Emergency Department on the above date and was hospitalized for further evaluation of their emergent condition. - New Patient This patient is new to me today: Yes Date on this admission: 03/29/18 - Critical Care Critical Care patient: No
[2018-03-30] MEDS: DOCUSATE SODIUM 100 MG CAPSULE (FP) PO SCH ×2 (06:44→14:05)
[2018-03-30] MEDS: metFORMIN HCL 500 MG TABLET (FP) PO SCH (06:44)
[2018-03-30] MEDS: AMOX TR/POT CLAV 875MG/125MG TABLETS (FP) PO SCH (08:31)
[2018-03-30] MEDS ORDERED: PT OWN MED DRAWER 7, Y5N ONE (09:19)
[2018-03-30] MEDS: METOPROLOL TARTRATE 25 MG TABLET (FP) PO SCH (09:32)
[2018-03-30] MEDS: LACTOBACILLUS ACIDOPHILUS 1 TABLET PO SCH (09:32)
[2018-03-30] MEDS: FAMOTIDINE 20 MG TABLET PO SCH (09:32)
[2018-03-30] MEDS: RAMIPRIL 2.5 MG CAPSULE (FP) PO SCH (09:32)
[2018-03-30 09:33] LABS: BASO % 0.1 % (0-2.0); HEMATOCRIT 36.4 % (35.4-49); HEMOGLOBIN 11.7 GM/dl (11.7-16.9); LYMPH % 7.1 % (8-40); MCHC 32.2 g/dl (32.0-35.9); MEAN CELL VOLUME 74.4 fl (80-96); MEAN PLT VOLUME 9.1 fl (7.5-11.1); MONO % 3.4 % (3.8-10.2); NEUT % 89.4 % (42.8-82.8); PLATELET COUNT 303 K/MM3 (134-434); RBC 4.89 M/mm3 (4.00-5.60); RDW 15.2 % (11.9-15.9); WHITE BLOOD COUNT 13.4 K/mm3 (4.0-10.8)
[2018-03-30] MEDS: TIOTROPIUM BROMIDE 2.5 MCG (SPIRIVA) RESPIMAT INHALER IH SCH (09:33)
[2018-03-30] MEDS: amLODIPine BESYLATE 5 MG TABLET (FP) PO SCH (09:33)
[2018-03-30] MEDS: BUDESONIDE/FORMETEROL FUMARATE 80/4.5 mcg INHALER IH SCH (09:33)
[2018-03-30] MEDS: FUROSEMIDE 40 MG/4 ML INJECTABLE VIAL IVPUSH SCH (09:33)
[2018-03-30] MEDS: POLYETHYLENE GLYCOL 3350 119 GM BTL PO SCH (09:34)
[2018-03-30 09:42] LABS: ALBUMIN 3.3 g/dl (3.5-5.0); ALK PHOS 78 U/L (32-92); ANION GAP 10 MMOL/L (8-16); BILIRUBIN,TOTAL 0.4 mg/dl (0.2-1.0); BLOOD UREA NITROGEN 43 mg/dl (7-18); CALCIUM 9.3 mg/dl (8.4-10.2); CHLORIDE 100 mmol/L (98-107); CO2 26 mmol/L (22-28); CREATININE 1.1 mg/dl (0.6-1.3); GLUCOSE,RANDOM 134 mg/dl (74-106); POTASSIUM 4.5 mmol/L (3.5-5.1); SGOT/AST 12 U/L (10-42); SGPT/ALT 10 U/L (10-40); SODIUM 136 mmol/L (136-145); TOT PROT 6.1 g/dl (6.4-8.3)
--- NOTE | 2018-03-30 09:48 | PN ---
Physical Exam: SUBJECTIVE: Patient seen and examined,reports feeling better, c/o productive cough mostly at night.Denies cp, sob, palpitations, abdominal pain, N/V/D or urinary symptoms. OBJECTIVE: Vital Signs Period Temp Pulse Resp BP Sys/Foley Pulse Ox Last 24 Hr 97.6 F-98.2 F 57-83 16-19 108-122/48-67 92-95 GENERAL: The patient is awake, alert, and fully oriented, in no acute distress. HEAD: Normal with no signs of trauma. EYES: PERRL, extraocular movements intact, sclera anicteric, conjunctiva clear. No ptosis. ENT: Ears normal, nares patent, oropharynx clear without exudates, moist mucous membranes. NECK: Trachea midline, full range of motion, supple. LUNGS: Breath sounds equal,no wheezes, fine crackles at the base, no accessory muscle use. HEART: Irregular, + HM ABDOMEN: Soft, nontender, non-distended, normoactive bowel sounds, no guarding, no rebound, no hepatosplenomegaly, no masses. EXTREMITIES: 2+ pulses, warm, well-perfused, no edema. NEUROLOGICAL: Cranial nerves II through XII grossly intact. Normal speech, gait not observed. PSYCH: Normal mood, normal affect. SKIN: Warm, dry, normal turgor, no rashes or lesions noted Laboratory Results - last 24 hr 03/29/18 03/29/18 03/29/18 17:11 18:30 18:30 POC Glucometer 206 Triglycerides 65 Cholesterol 154 Total LDL Cholesterol 96 HDL Cholesterol 45 TSH 0.40 Active Medications Generic Name Dose Route Start Last Admin Trade Name Gageq PRN Reason Stop Dose Admin Acetaminophen 650 mg 03/26/18 01:07 Tylenol - PO Q6H PRN PAIN LEVEL 1-5 Albuterol/Ipratropium 1 amp 03/27/18 11:29 03/28/18 17:07 Duoneb - NEB 1 amp Q6H PRN Administration SHORTNESS OF BREATH Amlodipine Besylate 5 mg 03/28/18 10:00 03/30/18 09:33 Norvasc - PO 5 mg DAILY DINA Administration Amoxicillin/Clavulanate Potassium 1 tab 03/28/18 17:30 03/30/18 08:31 Augmentin - 875mg Tablet PO 1 tab BID@0800,1730 DINA Administration Atorvastatin Calcium 40 mg 10/24/18 22:00 03/29/18 21:13 Lipitor - PO 40 mg HS DINA Administration Budesonide/Formoterol Fumarate 2 puff 03/27/18 11:30 03/30/18 09:33 Symbicort 80/4.5mcg - IH 2 puff BID DINA Administration Docusate Sodium 100 mg 03/26/18 06:00 03/30/18 06:44 Colace - PO 100 mg TID DINA Administration Famotidine 20 mg 03/28/18 22:00 03/30/18 09:32 Pepcid - PO 20 mg BID DINA Administration Furosemide 40 mg 03/29/18 10:00 03/30/18 09:33 Lasix Injection - IVPUSH 40 mg DAILY DINA Administration Lactobacillus Acidophilus 1 tab 03/28/18 11:30 03/30/18 09:32 Bacid - PO 1 tab DAILY DINA Administration Metformin HCl 500 mg 03/27/18 16:30 03/30/18 06:44 Glucophage - PO 500 mg BIDI DINA Administration Methylprednisolone Sodium Succinate 40 mg 03/30/18 10:00 03/30/18 09:34 Solu-Medrol - IVPUSH 03/30/18 10:01 40 mg DAILY DINA Administration Metoprolol Tartrate 25 mg 03/29/18 22:00 03/30/18 09:32 Lopressor - PO 25 mg BID DINA Administration Polyethylene Glycol 17 gm 03/26/18 10:00 03/30/18 09:34 Miralax (For Daily Use) - PO 17 gm DAILY DINA Administration Ramipril 2.5 mg 03/26/18 10:00 03/30/18 09:32 Altace - PO 2.5 mg DAILY DINA Administration Rivaroxaban 15 mg 03/26/18 22:00 03/29/18 21:13 Xarelto - PO 15 mg HS DINA Administration Senna 2 tab 03/27/18 14:56 Senna - PO HS PRN CONSTIPATION Spironolactone 25 mg 03/30/18 10:00 03/30/18 09:32 Aldactone - PO 25 mg DAILY DINA Administration Tamsulosin HCl 0.4 mg 03/26/18 22:00 03/29/18 21:13 Flomax - PO 0.4 mg HS DINA Administration Tiotropium [place] 2 puff 03/28/18 10:00 03/30/18 09:33 Spiriva Respimat IH 2 puff DAILY DINA Administration Microbiology 03/26/18 10:30 Sputum - Expectorated Gram Stain - Final 03/26/18 10:30 Sputum - Expectorated Sputum Culture - Final NORMAL RESPIRATORY JAVED CT Chest and CxR- Imaging reviewed ASSESSMENT/PLAN: This is a 72 year-old male with a PMH significant for HTN, HLD, CAD s/p stents s /p PPM, systolic HF, afib on Xarelto, NIDDM, BPH.Admitted for acute on chronic systolic heart failure and COPD exacerbation. *Acute on chronic systolic heart failure -BNP 1377 -03/26 Echo: LV mild to moderately reduced; BLAE; moderate to severe MR; mild TR ; mild , moderate AI; mild to moderate PI - will cont on Lasix IV and Spironolactone - daily weight monitoring, lost weight 82kg >76lKg -daily weight monitoring - monitor I&O's -cardiology following *COPD [id number] smoking history - diagnosed by pulm with COPD -S/p medrol -will continue inhalers nebsand Augmentin *Atrial fibrillation- HR controlled -will continue metorprolol, Ramipril and on Xarelto renally dosed *Hypertension- Bp stable - will continue metoprolol, amlodipine, Ramipril *Hyperlipidemia -continue atorvastatin *Coronary artery disease -continue metoprolol, atorvastatin; not on daily ASA *BPH -continue tamsulosin * DM - BS stable -will cont on Metformin *Lung nodule/Mediastinal Lymphadenopathy -needs outpatient followup with PET or 3-month CT * Leukocytosis - likely due to steroid use - no signs of infection noted DVT prophylaxis: on Xarelto Dispo: Will DC home. Visit type - Emergency Visit Emergency Visit: Yes ED Registration Date: 03/26/18 Care time: The patient presented to the Emergency Department on the above date and was hospitalized for further evaluation of their emergent condition. - New Patient This patient is new to me today: Yes Date on this admission: 03/30/18 - Critical Care Critical Care patient: No
[2018-03-30] MEDS ORDERED: methylPREDNISolone NA SUCC 40 MG/1 ML VIAL IVPUSH SCH (10:00)
[2018-03-30] MEDS ORDERED: SPIRONOLACTONE 25 MG TABLET (FP) PO SCH (10:00)
--- NOTE | 2018-03-30 13:10 | DS ---
Physical Exam: SUBJECTIVE: Patient seen and examined OBJECTIVE: Vital Signs Period Temp Pulse Resp BP Sys/Foley Pulse Ox Last 24 Hr 97.7 F-98.2 F 57-83 16-19 108-122/48-67 92-97 PHYSICAL EXAM GENERAL: The patient is awake, alert, and fully oriented, in no acute distress. HEAD: Normal with no signs of trauma. EYES: PERRL, extraocular movements intact, sclera anicteric, conjunctiva clear. ENT: Ears normal, nares patent, oropharynx clear without exudates, moist mucous membranes. NECK: Trachea midline, full range of motion, supple. LUNGS: Breath sounds equal, clear to auscultation bilaterally, no wheezes, no crackles, no accessory muscle use. HEART: Regular rate and rhythm, S1, S2 without murmur, rub or gallop. ABDOMEN: Soft, nontender, nondistended, normoactive bowel sounds, no guarding, no rebound, no hepatosplenomegaly, no masses. EXTREMITIES: 2+ pulses, warm, well-perfused, no edema. NEUROLOGICAL: Cranial nerves II through XII grossly intact. Normal speech, gait not observed. PSYCH: Normal mood, normal affect. SKIN: Warm, dry, normal turgor, no rashes or lesions noted. LABS Laboratory Results - last 24 hr 03/29/18 03/29/18 03/29/18 17:11 18:30 18:30 WBC RBC Hgb Hct MCV MCH MCHC RDW Plt Count MPV Absolute Neuts (auto) Neutrophils % Lymphocytes % Monocytes % Eosinophils % Basophils % Sodium Potassium Chloride Carbon Dioxide Anion Gap BUN Creatinine Creat Clearance w eGFR POC Glucometer 206 Random Glucose Calcium Magnesium Total Bilirubin AST ALT Alkaline Phosphatase Total Protein Albumin Triglycerides 65 Cholesterol 154 Total LDL Cholesterol 96 HDL Cholesterol 45 TSH 0.40 03/30/18 03/30/18 08:00 08:00 WBC 13.4 H RBC 4.89 Hgb 11.7 Hct 36.4 MCV 74.4 L MCH 24.0 L MCHC 32.2 RDW 15.2 Plt Count 303 MPV 9.1 Absolute Neuts (auto) 12.0 Neutrophils % 89.4 H Lymphocytes % 7.1 L D Monocytes % 3.4 L D Eosinophils % 0.0 Basophils % 0.1 Sodium 136 Potassium 4.5 Chloride 100 Carbon Dioxide 26 Anion Gap 10 BUN 43 H Creatinine 1.1 Creat Clearance w eGFR > 60 POC Glucometer Random Glucose 134 H Calcium 9.3 Magnesium 2.0 Total Bilirubin 0.4 AST 12 ALT 10 Alkaline Phosphatase 78 Total Protein 6.1 L Albumin 3.3 L Triglycerides Cholesterol Total LDL Cholesterol HDL Cholesterol TSH 03/26/18 10:30 Sputum - Expectorated Gram Stain - Final 03/26/18 10:30 Sputum - Expectorated Sputum Culture - Final NORMAL RESPIRATORY JAVED CxR: Increased congestive changes bilaterally CT chest:Pulmonary nodule,Mediastinal Lymphadenopathy,COPD and emphysematous changes. EKG- A-fib HOSPITAL COURSE: Date of Admission:03/26/18 Date of Discharge: 03/30/18 ASSESSMENT/PLAN: This is a 72 year-old male with a PMH significant for HTN, HLD, CAD s/p stents s /p PPM, systolic HF, afib on Xarelto, NIDDM, BPH.Admitted with acute on chronic systolic heart failure and COPD exacerbation. Lab revealed BNP 1377CxR: Increased congestive changes bilaterally. Pt received IV Lasix and Spironolactone with improvement, lost 6 lbs. Echo: LV mild to moderately reduced ; BLAE; moderate to severe MR; mild TR; mild , moderate AI; mild to moderate PI. Pt was evaluated by cardiology during the hospital say. Pt remains clinically stable,as per cardiology, hold off on Lasix in view of renal insufficiency and resume on Aldactone,BB and ROSE MARY. Recommend to followup with cardiology/ pmd and monitor renal functions closely. *COPD exacerbation (hx of smoking). Imaging revealed COPD and emphysematous changes.Pt was evaluated by pulmonary, received SoluMedrol and Inhalers with improvement. Pt aslo received Augmentin for bronchitis. Will resume on Inhalers and Augmentin to complete the course. Pt remains clinically stable,O2 sat stable on RA. *Atrial fibrillation- HR controlled,will continue metorprolol, Ramipril and on Xarelto renally dosed *Hypertension- BP stable,will continue BB, amlodipine and Ramipril *Hyperlipidemia: Will continue on Atorvastatin *Coronary artery disease: ACS ruled out ,continue home dose Bisoprolol, atorvastatin. *BPH: Will continue Tamsulosin * DM: BS stable, Hgb Alc 5.8,will cont on Metformin and to resume on consistent carb diet. *Lung nodule/Mediastinal Lymphadenopathy:Recommend out followup on * Leukocytosis - likely due to steroid use,afebrile,no signs of infection noted Minutes to complete discharge: 40 Discharge Summary Reason For Visit: ACUTE ON CHRONIC CONGESTIVE HEART FAILURE Current Active Problems Acute on chronic systolic and diastolic heart failure, NYHA class 2 (Acute) Atrial fibrillation (Acute) CHF exacerbation (Acute) COPD (chronic obstructive pulmonary disease) (Acute) Hemoptysis (Acute) Lung nodule < 6cm on CT (Acute) Condition: Stable - Instructions Diet, Activity, Other Instructions: Daily weight monitoring Monitor intake and output. Out patient followup on Lung nodule/Mediastinal Lymphadenopathy Needs outpatient PET or 3-month CT Followup renal functions with Dr. Mendoza Referrals: Simeon Mendoza MD [Staff Physician] - 04/01/18 (in a few days Cardiology followup with Rogelio Reilly ) Disposition: HOME - Home Medications Comprehensive Discharge Medication List: Ambulatory Orders Atorvastatin Ca [Lipitor] 40 mg PO HS 12/19/17 Rivaroxaban [Xarelto -] 15 mg PO DAILY 12/19/17 Tamsulosin HCl [Flomax -] 0.4 mg PO DAILY 03/25/18 Ramipril 2.5 mg PO DAILY 03/26/18 Albuterol Sulfate Inhaler - [Ventolin HFA Inhaler -] 2 inh PO Q6H 03/27/18 Amlodipine Besylate 5 mg PO DAILY 03/27/18 Metformin HCl [Glucophage] 500 mg PO BID 03/27/18 Amox-Tr/K Cl [Augmentin 875-125mg Tablet -] 1 tab PO BID@0800,1730 #6 tablet Bisoprolol Fumarate 03/30/18 Budesonide/Formeterol Fumarate [SYMBICORT 80/4.5mcg -] 2 puff IH BID #1 inhaler 03/30/18 Docusate Sodium [Colace -] 100 mg PO TID capsule 03/30/18 Lactobacillus Acidophilus [Bacid -] 1 tab PO DAILY tab 03/30/18 Polyethylene Glycol 3350 [Miralax 119 gm Btl -] 17 gm PO DAILY #30 bottle Sennosides [Senna -] 2 tab PO HS PRN tablet 03/30/18 Spironolactone [Aldactone -] 25 mg PO DAILY #30 tablet 03/30/18 Tiotropium [place] [Spiriva Respimat] 2 puff IH DAILY #1 inhaler 03/30/18 This patient is new to me today: Yes Date on this admission: 03/30/18 Emergency Visit: Yes ED Registration Date: 03/26/18 Care time: The patient presented to the Emergency Department on the above date and was hospitalized for further evaluation of their emergent condition. Critical Care patient: No - Discharge Referral Referred to [facility] No
[2018-03-30 14:04] VITALS: BP 116/54; PULSE 90; TEMP 97.9
--- NOTE | 2018-03-31 15:07 | EKG ---
Test Reason : Blood Pressure : / mmHG Vent. Rate : 063 BPM Atrial Rate : 056 BPM P-R Int : 000 ms QRS Dur : 122 ms QT Int : 448 ms P-R-T Axes : 000 -51 -60 degrees QTc Int : 458 ms ATRIAL FIBRILLATION WITH FREQUENT ventricular-paced complexes LEFT ANTERIOR FASCICULAR BLOCK LEFT VENTRICULAR HYPERTROPHY WITH QRS WIDENING T WAVE ABNORMALITY, CONSIDER INFERIOR ISCHEMIA T WAVE ABNORMALITY, CONSIDER ANTEROLATERAL ISCHEMIA ABNORMAL ECG WHEN COMPARED WITH ECG OF 25-MAR-2018 21:41, ELECTRONIC VENTRICULAR PACEMAKER RHYTHM IS SEEN Confirmed by GERARDO OTOOLE MD ([id number]) on 03/31/2018 3:07:37 PM Referred By: MD MONET Confirmed By:GERARDO OTOOLE MD
== END 2018-03-30 14:40 | disposition home or self-care (01) | DRG 194 ==
LOC: FER 20:09 → FM/S 23:32 → UNDOADMOB 03-26 00:30 → FM/S 03-26 00:30 → OBSVTOIN 03-26 17:18
PROVIDERS: ADMIT Internal Medicine; ATTEND Nurse Practitioner Family
DX: I11.0 Hypertensive heart disease with heart failure (principal); I50.23 Acute on chronic systolic (congestive) heart failure; J44.1 Chronic obstructive pulmonary disease with (acute) exacerbation; E78.5 Hyperlipidemia, unspecified; I25.10 Atherosclerotic heart disease of native coronary artery without angina pectoris; Z98.61 Coronary angioplasty status; E11.9 Type 2 diabetes mellitus without complications; N40.0 Benign prostatic hyperplasia without lower urinary tract symptoms; R91.1 Solitary pulmonary nodule; D72.829 Elevated white blood cell count, unspecified; N28.9 Disorder of kidney and ureter, unspecified; I48.91 Unspecified atrial fibrillation; R04.2 Hemoptysis; R59.1 Generalized enlarged lymph nodes; K59.00 Constipation, unspecified
CPT/HCPCS: 36415; 71045-TC-FY; 71046-TC-FY; 71250-TC; 80048; 80053; 80061; 81003; 82550; 82962; 83036; 83721; 83735; 83880; 84100; 84443; 84484; 85025; 85027; 87070; 87205; 93005; 93306-TC; 94640; 99284-25; G0378

== ENCOUNTER 2018-04-30 07:19 | Inpatient (IN) | payer OTHER ==
--- NOTE | 2018-04-30 07:23 | PDOC ---
History of Present Illness - General Chief Complaint: Respiratory Stated Complaint: RESPIRATORY COUGHING Time Seen by Provider: 04/30/18 07:22 History Source: Patient, Family Exam Limitations: No Limitations - History of Present Illness Initial Comments: 04/30/18 07:24 HISTORY OF PRESENT ILLNESS: Mr. Hurtado is a 72 yo M h/o HTN, HLD, CHF, A-fib (on Eliquis) CAD s/p 2 stents in 2009, s/p pacemaker (February 2018 at [facility]) presented to the ED today with SOB and chest pressure. Pt states his symptoms have been present for the past week but has worsened today. Pt reports midsternal chest pressure , rated 8-9/10, no radiation, no alleviating factors. Pt feels full of fluids. He is unable to lay flat in bed He denies cough, fevers, chills He has body aches but this is a chronic issue He denies nausea, vomiting, diarrhea He does have constipation He states he is able to ambulate approximately 5 minutes but this is worse than after his discharge He is compliant with his medications He was switched from Lasix to Aldactone (due to renal insufficiency) Denies light-headedness or syncope, no fever, no hemoptysis, n/v/d. No recent changes in diet. PCP: Dr. Simeon Mendoza [employer] Stitcher: Dr. Rogelio Doyle PAST MEDICAL HISTORY: CHF CAD s/p 2 stents HTN HLD A-Fib BPH PAST SURGICAL HISTORY: Pacemaker placement February 2018 2 Stents 2010 Hernia repair Social History: From [employer], retired, lives with his , only speaks Bengali Smokin pack per day, quit Alcohol: Rarely Drugs: No Allergies No Known Allergies Allergy (Verified 03/25/18 20:14) HOME MEDICATIONS: Home Medications Medication Instructions Recorded Atorvastatin Ca [Lipitor] 40 mg PO HS 12/19/17 Bisoprolol Fumarate 5 mg PO DAILY 12/19/17 Enalapril Maleate 2.5 mg PO DAILY 12/19/17 Furosemide 40 mg PO DAILY 12/19/17 Rivaroxaban [Xarelto -] 15 mg PO DAILY 12/19/17 Diltiazem HCl [Tiazac] 180 mg PO DAILY 03/25/18 Tamsulosin HCl [Flomax] 0.4 mg PO DAILY 03/25/18 REVIEW OF SYSTEMS CONSTITUTIONAL: (+) weight gain of 12 lbs in one month Absent: fever, chills, diaphoresis, generalized weakness, malaise, loss of appetite, HEENT: (+) congestion, small amount green mucus Absent: rhinorrhea, nasal congestion, throat pain, throat swelling, difficulty swallowing, mouth swelling, ear pain, eye pain, visual changes CARDIOVASCULAR: (+) chest pain, peripheral edema Absent: , syncope, palpitations, irregular heart rate, lightheadedness, RESPIRATORY: (+) cough, shortness of breath, dyspnea with exertion, orthopnea Absent: wheezing, stridor, hemoptysis GASTROINTESTINAL: (+) Constipation Absent: abdominal pain, abdominal distension, nausea, vomiting, diarrhea, melena , hematochezia GENITOURINARY: (+) Frequency Absent: dysuria, urgency, hesitancy, hematuria, flank pain, genital pain MUSCULOSKELETAL: Absent: myalgia, arthralgia, joint swelling, back pain, neck pain SKIN: Absent: rash, itching, pallor HEMATOLOGIC/IMMUNOLOGIC: Absent: easy bleeding, easy bruising, lymphadenopathy, frequent infections ENDOCRINE: Absent: unexplained weight gain, unexplained weight loss, heat intolerance, cold intolerance NEUROLOGIC: Absent: headache, focal weakness or paresthesias, dizziness, unsteady gait, seizure, mental status changes, bladder or bowel incontinence PSYCHIATRIC: Absent: anxiety, depression, suicidal or homicidal ideation, hallucinations. PHYSICAL EXAMINATION GENERAL: Awake, alert, and fully oriented, in no acute distress. HEAD: Normal with no signs of trauma. EYES: Pupils equal, round and reactive to light, extraocular movements intact, sclera anicteric, conjunctiva clear. No lid lag. EARS, NOSE, THROAT: +NC, nares patent, oropharynx clear without exudates. Poor dentition, moist mucous membranes. NECK: Normal range of motion, supple without lymphadenopathy, JVD, or masses. LUNGS: Basilar crackles b/l, congested cough, no accessory muscle use. HEART: Regular rate and rhythm, normal S1 and S2 without murmur, rub or gallop. ABDOMEN: Soft, nontender, not distended, normoactive bowel sounds, no guarding, no rebound, no masses. No hepatomegaly or splenomegaly. MUSCULOSKELETAL: Normal range of motion at all joints. No bony deformities or tenderness. No CVA tenderness. UPPER EXTREMITIES: 2+ pulses, warm, well-perfused. No cyanosis. No clubbing. No peripheral edema. LOWER EXTREMITIES: +1 edema to b/l LE, 2+ pulses, warm, well-perfused. No calf tenderness NEUROLOGICAL: No facial droop, tongue midline PSYCHIATRIC: Cooperative. Good eye contact. Appropriate mood and affect. SKIN: Warm, dry, normal turgor, no rashes or lesions noted, normal capillary refill. 04/30/18 07:34 04/30/18 08:08 Past History - Past Medical History Allergies/Adverse Reactions: Allergies Allergy/AdvReac Type Severity Reaction Status Date / Time No Known Allergies Allergy Verified 04/30/18 07:28 Home Medications: Ambulatory Orders Atorvastatin Ca [Lipitor] 40 mg PO HS 12/19/17 Rivaroxaban [Xarelto] 15 mg PO DAILY 12/19/17 Ramipril 2.5 mg PO DAILY 03/26/18 Albuterol Sulfate Inhaler - [Ventolin HFA Inhaler -] 2 inh PO Q6H 03/27/18 Amlodipine Besylate 5 mg PO DAILY 03/27/18 Metformin HCl [Glucophage] 500 mg PO BID 03/27/18 Docusate Sodium [Colace -] 100 mg PO TID capsule 03/30/18 Lactobacillus Acidophilus [Bacid -] 1 tab PO DAILY tab 03/30/18 Sennosides [Senna -] 2 tab PO HS PRN tablet 03/30/18 Spironolactone [Aldactone -] 25 mg PO DAILY #30 tablet 03/30/18 Tiotropium [place] [Spiriva Respimat] 2 puff IH DAILY #1 inhaler 03/30/18 Bisoprolol Fumarate 5 mg PO DAILY 04/30/18 Budesonide/Formeterol Fumarate [SYMBICORT 80/4.5mcg -] 1 inh PO BID 05/01/18 Furosemide [Lasix -] 40 mg PO DAILY #30 tablet 05/02/18 Cardiac Disorders: Yes (MS) COPD: No Diabetes: Yes HTN: Yes - Surgical History Abdominal Surgery: Yes (Hernia Repair) Cardiac Surgery: Yes (STENTS X2) - Suicide/Smoking/Psychosocial Hx Smoking History: Former smoker Have you smoked in the past 12 months: Yes Number of Cigarettes Smoked Daily: 20 If you are a former smoker, when did you quit?: ONE MONTH AGO 'Breaking Loose' booklet given: 03/25/18 Hx Alcohol Use: No Drug/Substance Use Hx: No Substance Use Type: None Hx Substance Use Treatment: No ED Treatment Course - LABORATORY CBC & Chemistry Diagram: 05/01/18 08:17 05/01/18 08:17 Medical Decision Making - Medical Decision Making 04/30/18 08:06 EKG: Afib, rate of 77 bpm, LAD, no st elevation or depression, CXR - decreased congestive changes 04/30/18 08:08 Will await labs prior to initiating lasix Will plan to place on observation given chest pressure and sob 04/30/18 08:33 Pt took spironolactone this morning Laboratory Tests 03/30/18 04/30/18 04/30/18 08:00 07:20 07:20 BUN 43 H 23 H Creatinine 1.1 1.2 Creatine Kinase 43 Troponin I < 0.03 04/30/18 08:44 Laboratory Tests 03/30/18 04/30/18 08:00 07:20 WBC 13.4 H 7.0 Hgb 11.7 12.4 Hct 36.4 38.5 Plt Count 303 278 Admitted to hospitalist service *DC/Admit/Observation/Transfer Diagnosis at time of Disposition: Chest pain Qualifiers: Chest pain type: unspecified Qualified Code(s): R07.9 - Chest pain, unspecified - Discharge Dispostion Condition at time of disposition: Improved Decision to Admit order: Yes - Prescriptions - Referrals - Patient Instructions - Post Discharge Activity
[2018-04-30 08:18] LABS: ANION GAP 8 MMOL/L (8-16); CALCIUM 8.7 mg/dl (8.4-10.2); CHLORIDE 105 mmol/L (98-107); CO2 23 mmol/L (22-28); GLUCOSE,RANDOM 134 mg/dl (74-106); POTASSIUM 3.9 mmol/L (3.5-5.1); SODIUM 136 mmol/L (136-145)
[2018-04-30 08:28] LABS: ALBUMIN 3.7 g/dl (3.5-5.0); ALK PHOS 82 U/L (32-92); BILIRUBIN,TOTAL 0.7 mg/dl (0.2-1.0); BLOOD UREA NITROGEN 23 mg/dl (7-18); CREATININE 1.2 mg/dl (0.6-1.3); SGOT/AST 18 U/L (10-42); SGPT/ALT 11 U/L (10-40); TOT PROT 6.6 g/dl (6.4-8.3)
[2018-04-30 08:39] LABS: BASO % 0.7 % (0-2.0); EOS % 3.4 % (0-4.5); HEMATOCRIT 38.5 % (35.4-49); HEMOGLOBIN 12.4 GM/dl (11.7-16.9); LYMPH % 27.5 % (8-40); MCH 23.4 pg (25.7-33.7); MCHC 32.1 g/dl (32.0-35.9); MEAN CELL VOLUME 73.1 fl (80-96); MEAN PLT VOLUME 8.7 fl (7.5-11.1); MONO % 6.5 % (3.8-10.2); NEUT % 61.9 % (42.8-82.8); PLATELET COUNT 278 K/MM3 (134-434); RBC 5.27 M/mm3 (4.00-5.60); RDW 14.9 % (11.9-15.9)
[2018-04-30 08:40] LABS: ADD RBC MORPHOLOGY YES
[2018-04-30 08:54] LABS: PLATELET ESTIMATE ADEQUATE
--- NOTE | 2018-04-30 09:36 | HP ---
CHIEF COMPLAINT: Chest pain PCP: Dr. Simeon Mendoza [employer] Demonstrator: Dr. Matson ([facility]) HISTORY OF PRESENT ILLNESS: This is a 72-year-old male with HTN, HLD, chronic systolic CHF, A-fib (s/p PPM 02/2018 at [facility], on Eliquis), NIDDM, CAD s/ p 2 stents in 2009,who presented to the ED today with chest pressure. The patient reports that he has the pressure even at rest. He also reports shortness of breath when walking a very short distance, difficulty laying flat at night, and rapid weight gain. Symptoms have been present for one week, but worsened today. He denies fevers/chills, cough, calf pain, or any other symptoms. He notes that his LE edema seems to be at baseline. Of note, he was reportedly instructed to stop Lasix due to renal insufficiency and has been on aldactone instead. 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, Smoking: Former smoker, 1 pack/day "my whole life" Alcohol: None Drugs: None Family History: Non-contributory Allergies No Known Allergies Allergy (Verified 04/30/18 07:28) HOME MEDICATIONS: Home Medications Medication Instructions Recorded Atorvastatin Ca [Lipitor] 40 mg PO HS 12/19/17 Rivaroxaban [Xarelto -] 15 mg PO DAILY 12/19/17 Ramipril 2.5 mg PO DAILY 03/26/18 Albuterol Sulfate Inhaler - 2 inh PO Q6H 03/27/18 [Ventolin HFA Inhaler -] Amlodipine Besylate 5 mg PO DAILY 03/27/18 Metformin HCl [Glucophage] 500 mg PO BID 03/27/18 Docusate Sodium [Colace -] 100 mg PO TID capsule 03/30/18 Lactobacillus Acidophilus [Bacid -] 1 tab PO DAILY tab 03/30/18 Sennosides [Senna -] 2 tab PO HS PRN tablet 03/30/18 Spironolactone [Aldactone -] 25 mg PO DAILY #30 tablet 03/30/18 Tiotropium [place] [Spiriva 2 puff IH DAILY #1 inhaler 03/30/18 Respimat] Bisoprolol Fumarate 5 mg PO DAILY 04/30/18 REVIEW OF SYSTEMS CONSTITUTIONAL: Weight gain of 12 lbs in one month, malaise, fatigue Absent: fever, chills, diaphoresis HEENT: Absent: rhinorrhea, nasal congestion, throat pain, throat swelling, difficulty swallowing, mouth swelling, ear pain, eye pain, visual changes CARDIOVASCULAR: See HPI Absent: palpitations, irregular heart rate, lightheadedness, change in peripheral edema, syncope RESPIRATORY: See HPI Absent: cough, wheezing, stridor, hemoptysis GASTROINTESTINAL: Absent: abdominal pain, abdominal distension, nausea, vomiting, diarrhea, constipation, melena, hematochezia GENITOURINARY: Absent: dysuria, frequency, urgency, hesitancy, hematuria, flank pain, genital pain MUSCULOSKELETAL: Absent: myalgia, arthralgia, joint swelling, back pain, neck pain SKIN: Absent: rash, itching, pallor HEMATOLOGIC/IMMUNOLOGIC: Absent: easy bleeding, easy bruising, lymphadenopathy, frequent infections ENDOCRINE: Absent: unexplained weight gain, unexplained weight loss, heat intolerance, cold intolerance NEUROLOGIC: Absent: headache, focal weakness or paresthesias, dizziness, unsteady gait, seizure, mental status changes, bladder or bowel incontinence PSYCHIATRIC: Absent: anxiety, depression, suicidal or homicidal ideation, hallucinations. PHYSICAL EXAMINATION Vital Signs - 24 hr 04/30/18 04/30/18 04/30/18 07:20 07:50 08:18 Temperature 98.3 F Pulse Rate 61 Pulse Rate [ 68 Right Radial] Respiratory 20 12 Rate Blood Pressure 112/68 Blood Pressure 110/78 [Right Arm] O2 Sat by Pulse 94 L 96 96 Oximetry (%) GENERAL: Awake, alert, and fully oriented, in no acute distress. HEAD: Normal with no signs of trauma. EYES: Pupils equal, round and reactive to light, extraocular movements intact, sclera anicteric, conjunctiva clear. No lid lag. EARS, NOSE, THROAT: Ears normal, nares patent, oropharynx clear without exudates. Moist mucous membranes. NECK: Normal range of motion, supple without lymphadenopathy, JVD, or masses. LUNGS: Rales at bases. No tachypnea or accessory muscle use. HEART: Irregular rhythm, S1/S2. ABDOMEN: Soft, nontender, not distended, normoactive bowel sounds, no guarding, no rebound, no masses. No hepatomegaly or splenomegaly. MUSCULOSKELETAL: Normal range of motion at all joints. No bony deformities or tenderness. No CVA tenderness. UPPER EXTREMITIES: 2+ pulses, warm, well-perfused. No cyanosis. No clubbing. LOWER EXTREMITIES: 2+ pulses, warm, well-perfused. 1+ LE edema bilaterally, no calf tenderness. NEUROLOGICAL: Cranial nerves II-XII intact. Normal speech. Normal gait. PSYCHIATRIC: Cooperative. Good eye contact. Appropriate mood and affect. SKIN: Warm, dry, normal turgor, no rashes or lesions noted, normal capillary refill. Laboratory Results - last 24 hr 04/30/18 04/30/18 04/30/18 07:20 07:20 07:20 WBC 7.0 RBC 5.27 Hgb 12.4 Hct 38.5 MCV 73.1 L MCH 23.4 L MCHC 32.1 RDW 14.9 Plt Count 278 MPV 8.7 Absolute Neuts (auto) 4.4 Neutrophils % 61.9 D Lymphocytes % 27.5 D Monocytes % 6.5 D Eosinophils % 3.4 D Basophils % 0.7 D Hypochromia 1+ Platelet Estimate Adequate Microcytosis 1+ Sodium 136 Potassium 3.9 Chloride 105 Carbon Dioxide 23 Anion Gap 8 BUN 23 H Creatinine 1.2 Creat Clearance w eGFR 59.35 Random Glucose 134 H Calcium 8.7 Total Bilirubin 0.7 AST 18 D ALT 11 Alkaline Phosphatase 82 Creatine Kinase 43 Troponin I < 0.03 Total Protein 6.6 Albumin 3.7 ASSESSMENT/PLAN: 72-year-old male with chest pain and [id number] systolic CHF. Problem List - Problem (1) Chest pain Assessment/Plan: -Monitor on telemetry -Serial troponins to rule out AL -Cardiology evaluation requested Code(s): R07.9 - CHEST PAIN, UNSPECIFIED Qualifiers: Chest pain type: unspecified Qualified Code(s): R07.9 - Chest pain, unspecified (2) Acute on chronic systolic and diastolic heart failure, NYHA class 2 Assessment/Plan: -Resume Lasix 20mg IVP bid with attention to creatinine -Continue home medications (lisinopril, spironolactone) -Strict I/O -Daily weights -Records requested from primary teacher aide Code(s): I50.43 - ACUTE ON CHRONIC COMBINED SYSTOLIC AND DIASTOLIC HRT FAIL (3) Hypertension Assessment/Plan: -At goal, continue amlodipine, lisinopril, spironolactone Code(s): I10 - ESSENTIAL (PRIMARY) HYPERTENSION (4) COPD (chronic obstructive pulmonary disease) Assessment/Plan: -No active issues -Continue Spiriva, prn albuterol Code(s): J44.9 - CHRONIC OBSTRUCTIVE PULMONARY DISEASE, UNSPECIFIED Qualifiers: COPD type: unspecified COPD Qualified Code(s): J44.9 - Chronic obstructive pulmonary disease, unspecified (5) Diabetes Assessment/Plan: -Continue Metformin (short expected length of stay) -Diabetic/Low sodium diet Code(s): E11.9 - TYPE 2 DIABETES MELLITUS WITHOUT COMPLICATIONS (6) Hyperlipidemia Assessment/Plan: -Continue atorvastatin Code(s): E78.5 - HYPERLIPIDEMIA, UNSPECIFIED Qualifiers: Hyperlipidemia type: pure hypercholesterolemia Qualified Code(s): E78.00 - Pure hypercholesterolemia, unspecified; E78.0 - Pure hypercholesterolemia (7) DVT prophylaxis Assessment/Plan: -Xarelto Code(s): RRY2446 - Visit type - Emergency Visit Emergency Visit: Yes ED Registration Date: 04/30/18 Care time: The patient presented to the Emergency Department on the above date and was hospitalized for further evaluation of their emergent condition. - New Patient This patient is new to me today: Yes Date on this admission: 04/30/18 - Critical Care Critical Care patient: No
[2018-04-30] MEDS ORDERED: FUROSEMIDE 40 MG/4 ML INJECTABLE VIAL IVPUSH ONE (09:56)
[2018-04-30] MEDS ORDERED: HEPARIN NA (PORCINE) 5,000 UNITS/ML 1ML VIAL SQ SCH (10:00)
--- NOTE | 2018-04-30 10:13 | EKG ---
Test Reason : Blood Pressure : / mmHG Vent. Rate : 077 BPM Atrial Rate : 062 BPM P-R Int : 000 ms QRS Dur : 106 ms QT Int : 416 ms P-R-T Axes : 000 -49 265 degrees QTc Int : 470 ms Suspect unspecified pacemaker failure ATRIAL FIBRILLATION WITH OCCASIONAL ventricular-paced complexes AND WITH PREMATURE VENTRICULAR OR ABERRANTLY CONDUCTED COMPLEXES LEFT ANTERIOR FASCICULAR BLOCK MINIMAL VOLTAGE CRITERIA FOR LVH, MAY BE NORMAL VARIANT PROLONGED QT ABNORMAL ECG WHEN COMPARED WITH ECG OF 30-MAR-2018 06:20, VENT. RATE HAS INCREASED BY 14 BPM Confirmed by GABBIE CONTI, CEDRICK ([id number]) on 04/30/2018 10:13:16 AM Referred By: CARMEN ALLAN Confirmed By:CEDRICK CARTWRIGHT MD
--- NOTE | 2018-04-30 10:20 | CON.CARD ---
Consult Consult Specialty:: Cardiology Referred by:: Hospitalist Medicine Reason for Consultation:: Dyspnea, chest tightness - History of Present Illness Chief Complaint: Dyspnea, chest tightness History of Present Illness: 72 year old male, with a PMH significant for HTN, HLD, chronic systolic CHF, A- fib (on Eliquis) CAD s/p 2 stents in 2009, s/p pacemaker (February 2018 at [facility] ) presented to the ED with progresive SOB and chest pressure , orthopnea, recently switched from Lasix to Aldactone, similar presentation last March. PCP: Dr. Simeon Mendoza Customer Service Technician: Dr. Rogelio Doyle - History Source History Provided By: Medical Record Limitations to Obtaining History: Language Barrier - Past Medical History Cardio/Vascular: Yes: CHF - Alcohol/Substance Use Hx Alcohol Use: No - Smoking History Smoking history: Former smoker Have you smoked in the past 12 months: Yes Aproximately how many cigarettes per day: 20 If you are a former smoker, when did you quit?: ONE MONTH AGO Home Medications - Allergies Allergies/Adverse Reactions: Allergies Allergy/AdvReac Type Severity Reaction Status Date / Time No Known Allergies Allergy Verified 04/30/18 07:28 - Home Medications Home Medications: Ambulatory Orders Atorvastatin Ca [Lipitor] 40 mg PO HS 12/19/17 Rivaroxaban [Xarelto -] 15 mg PO DAILY 12/19/17 Ramipril 2.5 mg PO DAILY 03/26/18 Albuterol Sulfate Inhaler - [Ventolin HFA Inhaler -] 2 inh PO Q6H 03/27/18 Amlodipine Besylate 5 mg PO DAILY 03/27/18 Metformin HCl [Glucophage] 500 mg PO BID 03/27/18 Docusate Sodium [Colace -] 100 mg PO TID capsule 03/30/18 Lactobacillus Acidophilus [Bacid -] 1 tab PO DAILY tab 03/30/18 Sennosides [Senna -] 2 tab PO HS PRN tablet 03/30/18 Spironolactone [Aldactone -] 25 mg PO DAILY #30 tablet 03/30/18 Tiotropium [place] [Spiriva Respimat] 2 puff IH DAILY #1 inhaler 03/30/18 Bisoprolol Fumarate 5 mg PO DAILY 04/30/18 Review of Systems - Review of Systems Cardiovascular: reports: Chest Pain Respiratory: reports: Exercise Intolerance, Orthopnea, SOB, SOB on Exertion Vital Signs: Vital Signs Temperature 98.3 F 04/30/18 07:20 Pulse Rate 70 04/30/18 09:43 Respiratory Rate 18 04/30/18 09:43 Blood Pressure 105/69 04/30/18 09:43 O2 Sat by Pulse Oximetry (%) 100 04/30/18 09:43 Constitutional: Yes: No Distress, Calm Neck: Yes: Supple Respiratory: Yes: Regular, Diminished, On Nasal O2 Gastrointestinal: Yes: Normal Bowel Sounds, Soft Cardiovascular: Yes: Pulse Irregular JVD: No Carotid Bruit: No Heart Sounds: Yes: S1, S2 Murmur: Yes: Systolic Murmur, Grade 2 Edema: No - Other Data Labs, Other Data: CBC, BMP 04/30/18 07:20 04/30/18 07:20 Troponin, BNP 04/30/18 07:20 Troponin I < 0.03 Troponin, BNP 04/30/18 07:20 Troponin I < 0.03 Afib incomplete LBBB PVC Imaging - Results Chest X-ray: Report Reviewed (Congestion) Cat Scan: Report Reviewed (Mild-mod ephysematous changes) Problem List - Problems (1) Chronic anticoagulation Code(s): Z79.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 OF 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 (2) Acute on chronic systolic and diastolic heart failure, NYHA class 2 Code(s): I50.43 - ACUTE ON CHRONIC COMBINED SYSTOLIC AND DIASTOLIC HRT FAIL (3) Atrial fibrillation Code(s): I48.91 - UNSPECIFIED ATRIAL FIBRILLATION Qualifiers: Atrial fibrillation type: persistent Qualified Code(s): I48.1 - Persistent atrial fibrillation (4) COPD (chronic obstructive pulmonary disease) Code(s): J44.9 - CHRONIC OBSTRUCTIVE PULMONARY DISEASE, UNSPECIFIED Qualifiers: COPD type: unspecified COPD Qualified Code(s): J44.9 - Chronic obstructive pulmonary disease, unspecified (5) Lung nodule < 6cm on CT Code(s): R91.1 - SOLITARY PULMONARY NODULE (6) Stented coronary artery Code(s): Z95.5 - PRESENCE OF CORONARY ANGIOPLASTY IMPLANT AND GRAFT (7) Hyperlipidemia Code(s): E78.5 - HYPERLIPIDEMIA, UNSPECIFIED Qualifiers: Hyperlipidemia type: pure hypercholesterolemia Qualified Code(s): E78.00 - Pure hypercholesterolemia, unspecified; E78.0 - Pure hypercholesterolemia (8) Pacemaker Code(s): Z95.0 - PRESENCE OF CARDIAC PACEMAKER Assessment/Plan 03/26/2018 Echo: Mod-severe posterior directed MR jet, mod ANIKA, mild-mod decreased LVEF, pacemaker, mild MG 15 mmHg, mod AR 1. Acute on chronic systolic and diastolic heart failure 2. Rate-controlled afib 3. Post PPM 4. COPD, pulm nodule 5. Hyperlipidemia 6. CAD s/p PCI (stent), angina pectoris P:1. IV diuresis with monitor diuretic response, renal fxn and electrolytes 2. Continue Lipitor 40 qhs, Xarelto 15 qd, Altace 2.5 qd, Aldactone 25 qd, Bisoprolol 5 qd, f/u BNP levels 3. BD, O2 as needed 4. Patient to follow-up with Dr. Gume PATINO upon d/c, please obtain outpatient records for review 5. Thank you for consultative opportunity
[2018-04-30] MEDS ORDERED: FUROSEMIDE 40 MG/4 ML INJECTABLE VIAL ONE (10:54)
[2018-04-30] MEDS ORDERED: ALBUTEROL SO4 8 GM HFA INHALER IH PRN (11:00)
[2018-04-30] MEDS ORDERED: RIVAROXABAN 15 MG TABLET PO SCH ×2 (11:15→22:00)
[2018-04-30] MEDS ORDERED: amLODIPine BESYLATE 5 MG TABLET (FP) PO SCH (11:15)
[2018-04-30 11:51] VITALS: BMI 33.0
[2018-04-30] MEDS: LACTOBACILLUS ACIDOPHILUS 1 TABLET PO SCH (12:10)
[2018-04-30] MEDS: RAMIPRIL 2.5 MG CAPSULE (FP) PO SCH (12:10)
[2018-04-30] MEDS: TIOTROPIUM BROMIDE 2.5 MCG (SPIRIVA) RESPIMAT INHALER IH SCH (12:20)
[2018-04-30] MEDS: PATIENT'S OWN MEDICATION (NON-FORMULARY) (Bisoprolol Fumarate [Bisoprolol Fumarate] 5 MG) PO SCH (12:21)
[2018-04-30] MEDS: DOCUSATE SODIUM 100 MG CAPSULE (FP) PO SCH ×2 (14:38→22:02)
[2018-04-30] MEDS: FUROSEMIDE 40 MG/4 ML INJECTABLE VIAL IVPUSH SCH (14:38)
--- NOTE | 2018-04-30 16:22 | ECHO ---
Name: BRENT MONROY Exam:Adult Echocardiogram Study Date: 04/30/2018 01:54 PM Age: 72 yrs Reason For Study: Chest pain Height: 63 in Weight: 185 lb BSA: 1.9 m2 MMode/2D Measurements & Calculations IVSd: 1.6 cm Ao root diam: 2.9 cm LVIDd: 4.4 cm LA dimension: 6.0 cm LVIDs: 2.8 cm LVPWd: 1.4 cm EDV(Teich): 89.9 ml LVOT diam: 2.0 cm ESV(Teich): 28.3 ml Doppler Measurements & Calculations MV E max calos: 160.1 cm/sec MV dec slope: 970.6 cm/sec2 Ao V2 max: 263.0 cm/sec LV V1 max P.3 mmHg Ao max P.8 mmHg LV V1 mean P.4 mmHg Ao V2 mean: 195.9 cm/sec LV V1 max: 76.2 cm/sec Ao mean P.8 mmHg LV V1 mean: 53.5 cm/sec Ao V2 VTI: 62.5 cm LV V1 VTI: 16.3 cm LETICIA(I,D): 0.83 cm2 LETICIA(V,D): 0.92 cm2 MR max calos: 517.1 cm/sec SV(LVOT): 52.0 ml MR max P.1 mmHg TR max calos: 256.5 cm/sec PI end-d calos: 157.0 cm/sec TR max P.6 mmHg Left Ventricle There is moderate concentric left ventricular hypertrophy. Left ventricular systolic function is mild to moderately reduced. There is mild to moderate global hypokinesis of the left ventricle. Regional wall motion abnormalities cannot be excluded due to limited visualization. Right Ventricle The right ventricle is not well visualized. Atria The left atrium is severely dilated. The right atrium is severely dilated. The atrial septum is aneur ysmal. Mitral Valve There is mild mitral valve thickening. There is no mitral valve stenosis. There is moderate to severe mitral regurgitation. The mitral regurgitant jet is eccentrically directed. Tricuspid Valve There is mild tricuspid valve thickening. There is no tricuspid stenosis. There is moderate to severe tricuspid regurgitation. Right ventricular systolic pressure is elevated at 30-40mmHg. Aortic Valve There is moderate to severe aortic valve thickening. There is moderate to severe aortic sclerosis.;. Mild to moderate valvular aortic stenosis. Moderate to severe aortic regurgitation. Pulmonic Valve The pulmonic valve is not well visualized. Great Vessels The aortic root is normal size. Pericardium/Pleura There is no pericardial effusion. Interpretation Summary There is moderate to severe mitral regurgitation. The mitral regurgitant jet is eccentrically directed. Moderate to severe aortic regurgitation. The left atrium is severely dilated. The right atrium is severely dilated. There is moderate concentric left ventricular hypertrophy. Left ventricular systolic function is mild to moderately reduced. There is moderate to severe tricuspid regurgitation. Right ventricular systolic pressure is elevated at 30-40mmHg. There is moderate to severe aortic valve thickening. There is moderate to severe aortic sclerosis.; The atrial septum is aneurysmal. Mild to moderate valvular aortic stenosis. There is mild to moderate global hypokinesis of the left ventricle. Regional wall motion abnormalities cannot be excluded due to limited visualization. The right ventricle is not well visualized. MD Deonte Del Rosario 04/30/2018 04:21 PM
[2018-04-30] MEDS: metFORMIN HCL 500 MG TABLET (FP) PO SCH (16:47)
[2018-04-30] MEDS: ATORVASTATIN CA 40 MG TABLET (FP) PO SCH (22:02)
[2018-04-30] MEDS: amLODIPine BESYLATE 5 MG TABLET (FP) PO SCH (22:03)
[2018-05-01] MEDS: metFORMIN HCL 500 MG TABLET (FP) PO SCH ×2 (06:34→15:54)
[2018-05-01] MEDS: DOCUSATE SODIUM 100 MG CAPSULE (FP) PO SCH ×3 (06:34→21:56)
[2018-05-01] MEDS: FUROSEMIDE 40 MG/4 ML INJECTABLE VIAL IVPUSH SCH ×2 (06:34→14:30)
[2018-05-01 08:54] LABS: ALBUMIN 3.6 g/dl (3.5-5.0); ALK PHOS 83 U/L (32-92); ANION GAP 9 MMOL/L (8-16); BILIRUBIN,TOTAL 0.8 mg/dl (0.2-1.0); BLOOD UREA NITROGEN 24 mg/dl (7-18); CALCIUM 9.1 mg/dl (8.4-10.2); CHLORIDE 99 mmol/L (98-107); CHOLESTEROL 127 mg/dl; CO2 28 mmol/L (22-28); CREATININE 1.2 mg/dl (0.6-1.3); GLUCOSE,RANDOM 97 mg/dl (74-106); HDL CHOLESTEROL 29 mg/dl (29-89); MAGNESIUM 1.7 mg/dL (1.8-2.4); POTASSIUM 4.1 mmol/L (3.5-5.1); SGOT/AST 14 U/L (10-42); SGPT/ALT 12 U/L (10-40); SODIUM 136 mmol/L (136-145); TOT PROT 6.7 g/dl (6.4-8.3); TRIGLYCERIDES 114 mg/dl (35-160)
[2018-05-01 08:55] LABS: BASO % 0.6 % (0-2.0); EOS % 3.5 % (0-4.5); HEMATOCRIT 40.6 % (35.4-49); HEMOGLOBIN 12.6 GM/dl (11.7-16.9); LYMPH % 27.5 % (8-40); MCH 23.1 pg (25.7-33.7); MCHC 31.1 g/dl (32.0-35.9); MEAN CELL VOLUME 74.1 fl (80-96); MEAN PLT VOLUME 8.5 fl (7.5-11.1); NEUT % 58.4 % (42.8-82.8); PLATELET COUNT 272 K/MM3 (134-434); RBC 5.48 M/mm3 (4.00-5.60); RDW 14.6 % (11.9-15.9); WHITE BLOOD COUNT 6.7 K/mm3 (4.0-10.8)
--- NOTE | 2018-05-01 09:22 | PN ---
Progress Note, Physician History of Present Illness: Dyspnea on exertion, orthopnea, lower extremity edema resolving with IV diuresis , but not yet at baseline, reports post-tussive chest tightness. 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 Echo results worse than prior 01/2018. PCP: Dr. Simeon Mendoza Local Hazmat Driver: Dr. Rogelio Doyle - Current Medication List Current Medications: Active Medications Albuterol Sulfate (Ventolin Hfa Inhaler -) 2 puff IH Q6H PRN PRN Reason: WHEEZING Amlodipine Besylate (Norvasc -) 5 mg PO HS [facility] Last Admin: 04/30/18 22:03 Dose: 5 mg Atorvastatin Calcium (Lipitor -) 40 mg PO HS [facility] Last Admin: 04/30/18 22:02 Dose: 40 mg Docusate Sodium (Colace -) 100 mg PO TID [facility] Last Admin: 05/01/18 06:34 Dose: 100 mg Furosemide (Lasix Injection -) 20 mg IVPUSH BID@0600,1400 [facility] Last Admin: 05/01/18 06:34 Dose: 20 mg Lactobacillus Acidophilus (Bacid -) 1 tab PO DAILY [facility] Last Admin: 04/30/18 12:10 Dose: 1 tab Metformin HCl (Glucophage -) 500 mg PO BIDI [facility] Last Admin: 05/01/18 06:34 Dose: 500 mg Non-Formulary Medication (Bisoprolol Fumarate [Bisoprolol Fumarate]) 5 mg PO DAILY [facility] Last Admin: 04/30/18 12:21 Dose: 5 mg Ramipril (Altace -) 2.5 mg PO DAILY [facility] Last Admin: 04/30/18 12:10 Dose: 2.5 mg Rivaroxaban (Xarelto -) 15 mg PO HS [facility] Last Admin: 04/30/18 22:03 Dose: 15 mg Spironolactone (Aldactone -) 25 mg PO DAILY [facility] Tiotropium [place] (Spiriva Respimat) 2 puff IH DAILY [facility] Last Admin: 04/30/18 12:20 Dose: Not Given - Objective Vital Signs: Vital Signs Temperature 98.4 F 05/01/18 06:00 Pulse Rate 64 05/01/18 06:00 Respiratory Rate 18 05/01/18 06:00 Blood Pressure 109/54 L 05/01/18 06:00 O2 Sat by Pulse Oximetry (%) 96 05/01/18 08:04 Constitutional: Yes: No Distress, Calm, Thin Neck: Yes: Supple Cardiovascular: Yes: Regular Rate and Rhythm, Murmur (2/6 SM) Respiratory: Yes: Regular, Diminished Gastrointestinal: Yes: Normal Bowel Sounds, Soft Edema: No Labs: CBC, BMP 05/01/18 08:17 05/01/18 08:17 Problem List - Problems (1) Chronic anticoagulation Code(s): 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 (2) Acute on chronic systolic and diastolic heart failure, NYHA class 2 Code(s): I50.43 - ACUTE ON CHRONIC COMBINED SYSTOLIC AND DIASTOLIC HRT FAIL (3) Atrial fibrillation Code(s): I48.91 - UNSPECIFIED ATRIAL FIBRILLATION Qualifiers: Atrial fibrillation type: persistent Qualified Code(s): I48.1 - Persistent atrial fibrillation (4) COPD (chronic obstructive pulmonary disease) Code(s): J44.9 - CHRONIC OBSTRUCTIVE PULMONARY DISEASE, UNSPECIFIED Qualifiers: COPD type: unspecified COPD Qualified Code(s): J44.9 - Chronic obstructive pulmonary disease, unspecified (5) Lung nodule < 6cm on CT Code(s): R91.1 - SOLITARY PULMONARY NODULE (6) Stented coronary artery Code(s): Z95.5 - PRESENCE OF CORONARY ANGIOPLASTY IMPLANT AND GRAFT (7) Hyperlipidemia Code(s): E78.5 - HYPERLIPIDEMIA, UNSPECIFIED Qualifiers: Hyperlipidemia type: pure hypercholesterolemia Qualified Code(s): E78.00 - Pure hypercholesterolemia, unspecified; E78.0 - Pure hypercholesterolemia (8) Pacemaker Code(s): Z95.0 - PRESENCE OF CARDIAC PACEMAKER Assessment/Plan 03/26/2018 Echo: Mod-severe posterior directed MR jet, mod ANIKA, mild-mod decreased LVEF, pacemaker, mild MG 15 mmHg, mod AR 01/27/2018 Echo: Mild cLVH, normal LV fxn, mod LAE, mild MR, TR, AR, RVSP 30- 35 mmHg 01/27/2018 Lexiscan Mibi: No ischemia or infarction, LVEF 53% with mildly dilated LV 1. Acute on chronic systolic and diastolic heart failure resolving 2. Rate-controlled afib 3. Post PPM 29% v-paced 4. COPD, pulm nodule 5. Hyperlipidemia 6. CAD s/p PCI (stent), angina pectoris P:1. IV diuresis with monitor diuretic response, renal fxn and electrolytes 2. Continue Lipitor 40 qhs, increase Xarelto 20 qd, Altace 2.5 qd, Aldactone 25 qd, Bisoprolol 5 qd, Norvasc 5 qd 3. BD, O2 as needed 4. Patient to follow-up with Dr. Gume PATINO upon d/c, outpatient records have been reviewed
[2018-05-01] MEDS ORDERED: AZITHROMYCIN 250 MG TABLET PO ONE (10:00)
[2018-05-01] MEDS ORDERED: ATENOLOL 50 MG TABLET (FP) PO SCH (10:00)
[2018-05-01] MEDS: SPIRONOLACTONE 25 MG TABLET (FP) PO SCH (10:18)
[2018-05-01] MEDS: RAMIPRIL 2.5 MG CAPSULE (FP) PO SCH (10:18)
[2018-05-01] MEDS: LACTOBACILLUS ACIDOPHILUS 1 TABLET PO SCH (10:19)
--- NOTE | 2018-05-01 10:20 | PN ---
Physical Exam: SUBJECTIVE: Patient seen and examined on morning rounds, examined with assistance of [employer] senior java web developer # [id number]. Feels much better, though not back to baseline. Able to walk up to 200 meters without feeling dyspneic per his report. Complains of cough productive of green sputum (no hemoptysis) with post-tussive chest pain. No fevers/chills. OBJECTIVE: Vital Signs Period Temp Pulse Resp BP Sys/Foley Pulse Ox Last 24 Hr 97.5 F-98.5 F 58-78 17-19 91-130/52-67 94-96 GENERAL: The patient is awake, alert, and fully oriented, in no acute distress. HEAD: Normal with no signs of trauma. EYES: PERRL, extraocular movements intact, sclera anicteric, conjunctiva clear. No ptosis. ENT: Ears normal, nares patent, oropharynx clear without exudates, moist mucous membranes. NECK: Trachea midline, full range of motion, supple. LUNGS:Scattered ronchi and rales. No tachypnea, wheezing, or accessory muscle use. Able to speak in full sentences. accessory muscle use. HEART: Regular rate and rhythm, S1, S2 without murmur, rub or gallop. ABDOMEN: Soft, nontender, nondistended, normoactive bowel sounds, no guarding, no rebound, no hepatosplenomegaly, no masses. EXTREMITIES: 2+ pulses, warm, well-perfused, 1+ LE edema. NEUROLOGICAL: Cranial nerves II through XII grossly intact. Normal speech, gait not observed. PSYCH: Normal mood, normal affect. SKIN: Warm, dry, normal turgor, no rashes or lesions noted Laboratory Results - last 24 hr 04/30/18 04/30/18 04/30/18 07:20 16:10 20:00 WBC RBC Hgb Hct MCV MCH MCHC RDW Plt Count MPV Absolute Neuts (auto) Neutrophils % Lymphocytes % Monocytes % Eosinophils % Basophils % Sodium Potassium Chloride Carbon Dioxide Anion Gap BUN Creatinine Creat Clearance w eGFR POC Glucometer Random Glucose Calcium Magnesium Total Bilirubin AST ALT Alkaline Phosphatase Troponin I < 0.03 < 0.03 B-Natriuretic Peptide 1657.0 H Total Protein Albumin Triglycerides Cholesterol Total LDL Cholesterol HDL Cholesterol 04/30/18 05/01/18 05/01/18 21:58 06:32 08:17 WBC 6.7 RBC 5.48 Hgb 12.6 Hct 40.6 MCV 74.1 L MCH 23.1 L MCHC 31.1 L RDW 14.6 Plt Count 272 MPV 8.5 Absolute Neuts (auto) 4.0 Neutrophils % 58.4 Lymphocytes % 27.5 Monocytes % 10.0 Eosinophils % 3.5 Basophils % 0.6 Sodium Potassium Chloride Carbon Dioxide Anion Gap BUN Creatinine Creat Clearance w eGFR POC Glucometer 89 88 Random Glucose Calcium Magnesium Total Bilirubin AST ALT Alkaline Phosphatase Troponin I B-Natriuretic Peptide Total Protein Albumin Triglycerides Cholesterol Total LDL Cholesterol HDL Cholesterol 05/01/18 08:17 WBC RBC Hgb Hct MCV MCH MCHC RDW Plt Count MPV Absolute Neuts (auto) Neutrophils % Lymphocytes % Monocytes % Eosinophils % Basophils % Sodium 136 Potassium 4.1 Chloride 99 Carbon Dioxide 28 D Anion Gap 9 BUN 24 H Creatinine 1.2 Creat Clearance w eGFR 59.35 POC Glucometer Random Glucose 97 D Calcium 9.1 Magnesium 1.7 L Total Bilirubin 0.8 AST 14 D ALT 12 Alkaline Phosphatase 83 Troponin I B-Natriuretic Peptide Total Protein 6.7 Albumin 3.6 Triglycerides 114 D Cholesterol 127 Total LDL Cholesterol 75 HDL Cholesterol 29 D Active Medications Generic Name Dose Route Start Last Admin Trade Name Freq PRN Reason Stop Dose Admin Albuterol Sulfate 2 puff 04/30/18 11:00 Ventolin Hfa Inhaler - IH Q6H PRN WHEEZING Amlodipine Besylate 5 mg 04/30/18 22:00 04/30/18 22:03 Norvasc - PO 5 mg HS DINA Administration Atorvastatin Calcium 40 mg 04/30/18 22:00 04/30/18 22:02 Lipitor - PO 40 mg HS DINA Administration Azithromycin 250 mg 05/02/18 10:00 Zithromax - PO DAILY DINA Budesonide/Formoterol Fumarate 1 puff 05/01/18 10:15 Symbicort 80/4.5mcg - IH BID DINA Docusate Sodium 100 mg 04/30/18 14:00 05/01/18 06:34 Colace - PO 100 mg TID DINA Administration Furosemide 20 mg 04/30/18 14:00 05/01/18 06:34 Lasix Injection - IVPUSH 20 mg BID@0600,1400 DINA Administration Lactobacillus Acidophilus 1 tab 04/30/18 11:15 04/30/18 12:10 Bacid - PO 1 tab DAILY DINA Administration Metformin HCl 500 mg 04/30/18 16:30 05/01/18 06:34 Glucophage - PO 500 mg BIDI DINA Administration Non-Formulary Medication 5 mg 04/30/18 12:15 04/30/18 12:21 Bisoprolol Fumarate [Bisoprolol Fumarate] PO 5 mg DAILY DINA Administration Ramipril 2.5 mg 04/30/18 11:15 04/30/18 12:10 Altace - PO 2.5 mg DAILY DINA Administration Rivaroxaban 20 mg 05/01/18 22:00 Xarelto - PO HS DINA Spironolactone 25 mg 05/01/18 10:00 Aldactone - PO DAILY DINA Tiotropium [place] 2 puff 04/30/18 11:15 04/30/18 12:20 Spiriva Respimat IH Not Given DAILY DINA ASSESSMENT/PLAN: 72-year-old male with cough, dyspnea, and chest pain - likely multi-factoral (CHF, COPD, ?bronchitis). Problem List - Problems (1) Chest pain Assessment/Plan: -Resolved, now only post-tussive -Monitor on telemetry -Trop neg x 3 -Cardiology following Code(s): R07.9 - CHEST PAIN, UNSPECIFIED Qualifiers: Chest pain type: unspecified Qualified Code(s): R07.9 - Chest pain, unspecified (2) Acute on chronic systolic and diastolic heart failure, NYHA class 2 Assessment/Plan: -Continue Lasix 20mg IVP bid with attention to creatinine -Continue home medications (lisinopril, spironolactone, bisoprolol) -Strict I/O (-3.5L since admission) -Daily weights (down 3kg, but weight on admission reported rather than actual) -Records requested from primary furnace roaster and are in paper chart - significant for echo here showing mild -mod MR and TR compared with echo of 2016 which could explain exacerbation of CHF Code(s): I50.43 - ACUTE ON CHRONIC COMBINED SYSTOLIC AND DIASTOLIC HRT FAIL (3) Hypertension Code(s): I10 - ESSENTIAL (PRIMARY) HYPERTENSION (4) COPD (chronic obstructive pulmonary disease) Assessment/Plan: -Continue Spiriva, prn albuterol -Add azithromycin given purulent sputum/possible bronchitis Code(s): J44.9 - CHRONIC OBSTRUCTIVE PULMONARY DISEASE, UNSPECIFIED Qualifiers: COPD type: unspecified COPD Qualified Code(s): J44.9 - Chronic obstructive pulmonary disease, unspecified (5) Diabetes Assessment/Plan: -Continue Metformin (short expected length of stay) -Diabetic/Low sodium diet Code(s): E11.9 - TYPE 2 DIABETES MELLITUS WITHOUT COMPLICATIONS (6) Hyperlipidemia Assessment/Plan: -Continue atorvastatin Code(s): E78.5 - HYPERLIPIDEMIA, UNSPECIFIED Qualifiers: Hyperlipidemia type: pure hypercholesterolemia Qualified Code(s): E78.00 - Pure hypercholesterolemia, unspecified; E78.0 - Pure hypercholesterolemia (7) DVT prophylaxis Assessment/Plan: -Xarelto DISPO: Requires inpatient services. At time of dc, patient should be reminded of need for followup Chest CT in 2 months given 9mm nodule and mediastinal lymphadenopathy noted on CT of 03/27/18. Code(s): [id number] - Visit type - Emergency Visit Emergency Visit: Yes ED Registration Date: 04/30/18 Care time: The patient presented to the Emergency Department on the above date and was hospitalized for further evaluation of their emergent condition. - New Patient This patient is new to me today: No - Critical Care Critical Care patient: No - Discharge Referral Referred to [facility] Med P.C.: No
[2018-05-01] MEDS: BUDESONIDE/FORMETEROL FUMARATE 80/4.5 mcg INHALER IH SCH ×2 (10:21→22:03)
[2018-05-01] MEDS: PATIENT'S OWN MEDICATION (NON-FORMULARY) (Bisoprolol Fumarate [Bisoprolol Fumarate] 5 MG) PO SCH (10:21)
[2018-05-01] MEDS: TIOTROPIUM BROMIDE 2.5 MCG (SPIRIVA) RESPIMAT INHALER IH SCH (10:21)
--- NOTE | 2018-05-01 19:12 | CON.PULM ---
Consult Consult Specialty:: PULMONARY Referred by:: OSVALDO Reason for Consultation:: SOB/COUGH - History of Present Illness Chief Complaint: SOB/COUGH History of Present Illness: Mr. Hurtado is a 72 yo M h/o HTN, HLD, CHF, A-fib (on Eliquis) CAD s/p 2 stents in 2009, s/p pacemaker (February 2018 at [facility]) presented to the ED today with SOB and chest pressure. Pt states his symptoms have been present for the past week but has worsened today. Pt reports midsternal chest pressure , rated 8-9/10, no radiation, no alleviating factors. Pt feels full of fluids. 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 Cardio/Vascular: Yes: CHF - Alcohol/Substance Use Hx Alcohol Use: No - Smoking History Smoking history: Former smoker Have you smoked in the past 12 months: Yes Aproximately how many cigarettes per day: 20 If you are a former smoker, when did you quit?: ONE MONTH AGO - Social History Place of : Other Home Medications - Allergies Allergies/Adverse Reactions: Allergies Allergy/AdvReac Type Severity Reaction Status Date / Time No Known Allergies Allergy Verified 04/30/18 07:28 - Home Medications Home Medications: Ambulatory Orders Atorvastatin Ca [Lipitor] 40 mg PO HS 12/19/17 Rivaroxaban [Xarelto] 15 mg PO DAILY 12/19/17 Ramipril 2.5 mg PO DAILY 03/26/18 Albuterol Sulfate Inhaler - [Ventolin HFA Inhaler -] 2 inh PO Q6H 03/27/18 Amlodipine Besylate 5 mg PO DAILY 03/27/18 Metformin HCl [Glucophage] 500 mg PO BID 03/27/18 Docusate Sodium [Colace -] 100 mg PO TID capsule 03/30/18 Lactobacillus Acidophilus [Bacid -] 1 tab PO DAILY tab 03/30/18 Sennosides [Senna -] 2 tab PO HS PRN tablet 03/30/18 Spironolactone [Aldactone -] 25 mg PO DAILY #30 tablet 03/30/18 Tiotropium [place] [Spiriva Respimat] 2 puff IH DAILY #1 inhaler 03/30/18 Bisoprolol Fumarate 5 mg PO DAILY 04/30/18 Budesonide/Formeterol Fumarate [SYMBICORT 80/4.5mcg -] 1 inh PO BID 05/01/18 Family Disease History - Family Disease History Family History: Unremarkable Review of Systems Unable to obtain ROS, reason: UNABLE Physical Exam Vital Sings: Vital Signs Temperature 98.4 F 05/01/18 14:00 Pulse Rate 66 05/01/18 14:00 Respiratory Rate 18 05/01/18 14:00 Blood Pressure 106/56 L 05/01/18 14:00 O2 Sat by Pulse Oximetry (%) 96 05/01/18 14:00 Constitutional: Yes: Calm Eyes: Yes: EOM Intact HENT: Yes: Normocephalic Neck: Yes: Trachea Midline Cardiovascular: Yes: Regular Rate and Rhythm Respiratory: Yes: CTA Bilaterally Gastrointestinal: Yes: Normal Bowel Sounds Renal/: Yes: WNL Extremities: Yes: WNL Labs: CBC, BMP 05/01/18 08:17 05/01/18 08:17 REVIEWED Imaging - Results Chest X-ray: Report Reviewed, Image Reviewed Problem List - Problems (1) Chest pain Code(s): R07.9 - CHEST PAIN, UNSPECIFIED Qualifiers: Chest pain type: unspecified Qualified Code(s): R07.9 - Chest pain, unspecified (2) Chronic anticoagulation Code(s): Z79.01 - JAIL (CURRENT) USE OF 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 (3) DVT prophylaxis Code(s): [id number] - (4) Hyperlipidemia Code(s): E78.5 - HYPERLIPIDEMIA, UNSPECIFIED Qualifiers: Hyperlipidemia type: pure hypercholesterolemia Qualified Code(s): E78.00 - Pure hypercholesterolemia, unspecified; E78.0 - Pure hypercholesterolemia (5) Hypertension Code(s): I10 - ESSENTIAL (PRIMARY) HYPERTENSION (6) Pacemaker Code(s): Z95.0 - PRESENCE OF CARDIAC PACEMAKER (7) Stented coronary artery Code(s): Z95.5 - PRESENCE OF CORONARY ANGIOPLASTY IMPLANT AND GRAFT (8) Acute on chronic systolic and diastolic heart failure, NYHA class 2 Code(s): I50.43 - ACUTE ON CHRONIC COMBINED SYSTOLIC AND DIASTOLIC HRT FAIL (9) Atrial fibrillation Code(s): I48.91 - UNSPECIFIED ATRIAL FIBRILLATION Qualifiers: Atrial fibrillation type: persistent Qualified Code(s): I48.1 - Persistent atrial fibrillation Assessment/Plan ANTICOAGULATION DIURETICS O2 PRN BRONCHODILATORS PRN CARDIO NOTE APPRECIATED NO OBJECTION FROM PULMONARY STANDPOINT FOR CONTINUING TREATMENT AN OUTPATIENT Starr GONZALEZ MD
[2018-05-01] MEDS ORDERED: MAGNESIUM OXIDE 400 MG TABLET (FP) PO ONE (20:00)
[2018-05-01] MEDS: amLODIPine BESYLATE 5 MG TABLET (FP) PO SCH (21:56)
[2018-05-01] MEDS: ATORVASTATIN CA 40 MG TABLET (FP) PO SCH (21:56)
[2018-05-01] MEDS ORDERED: RIVAROXABAN 10 MG TABLET PO SCH (22:00)
[2018-05-02] MEDS: metFORMIN HCL 500 MG TABLET (FP) PO SCH (07:12)
[2018-05-02] MEDS: DOCUSATE SODIUM 100 MG CAPSULE (FP) PO SCH (07:13)
[2018-05-02] MEDS: FUROSEMIDE 40 MG/4 ML INJECTABLE VIAL IVPUSH SCH (07:13)
--- NOTE | 2018-05-02 09:36 | PN ---
Progress Note, Physician History of Present Illness: Dyspnea on exertion, orthopnea, lower extremity edema resolved with IV diuresis , now at baseline. Echo results worse than prior 01/2018. PCP: Dr. Simeon Mendoza Clinical Research Manager: Dr. Rogelio Doyle - Current Medication List Current Medications: Active Medications Albuterol Sulfate (Ventolin Hfa Inhaler -) 2 puff IH Q6H PRN PRN Reason: WHEEZING Amlodipine Besylate (Norvasc -) [address] [facility] Last Admin: 05/01/18 21:56 Dose: Not Given Atorvastatin Calcium (Lipitor -) [address] [facility] Last Admin: 05/01/18 21:56 Dose: 40 mg Azithromycin (Zithromax -) [address] [facility] Budesonide/Formoterol Fumarate (Symbicort 80/4.5mcg -) [address] [facility] Last Admin: 05/01/18 22:03 Dose: 1 puff Docusate Sodium (Colace -) [address] [facility] Last Admin: 05/02/18 07:13 Dose: 100 mg Furosemide (Lasix Injection -) 20 mg IVPUSH BID@0600,1400 [facility] Last Admin: 05/02/18 07:13 Dose: 20 mg Lactobacillus Acidophilus (Bacid -) [address] [facility] Last Admin: 05/01/18 10:19 Dose: 1 tab Metformin HCl (Glucophage -) [address] [facility] Last Admin: 05/02/18 07:12 Dose: 500 mg Non-Formulary Medication (Bisoprolol Fumarate [Bisoprolol Fumarate]) [address] [facility] Last Admin: 05/01/18 10:21 Dose: 5 mg Ramipril (Altace -) 2.[address] [facility] Last Admin: 05/01/18 10:18 Dose: 2.5 mg Rivaroxaban (Xarelto -) [address] [facility] Last Admin: 05/01/18 21:55 Dose: 20 mg Spironolactone (Aldactone -) [address] [facility] Last Admin: 05/01/18 10:18 Dose: 25 mg Tiotropium [place] (Spiriva Respimat) [address] [facility] Last Admin: 05/01/18 10:21 Dose: 2 puff - Objective Vital Signs: Vital Signs Temperature 97.7 F 05/02/18 06:00 Pulse Rate 80 11/30/18 06:00 Respiratory Rate 18 05/02/18 06:00 Blood Pressure 105/60 05/02/18 06:00 O2 Sat by Pulse Oximetry (%) 95 05/02/18 09:00 Constitutional: Yes: No Distress, Calm Neck: Yes: Supple Cardiovascular: Yes: Regular Rate and Rhythm, Murmur (2/6 SM) Respiratory: Yes: Regular, CTA Bilaterally, On Nasal O2 Gastrointestinal: Yes: Normal Bowel Sounds, Soft Edema: No Labs: CBC, BMP 05/01/18 08:17 05/01/18 08:17 Problem List - Problems (1) Chronic anticoagulation Code(s): 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 (2) Acute on chronic systolic and diastolic heart failure, NYHA class 2 Code(s): I50.43 - ACUTE ON CHRONIC COMBINED SYSTOLIC AND DIASTOLIC HRT FAIL (3) Atrial fibrillation Code(s): I48.91 - UNSPECIFIED ATRIAL FIBRILLATION Qualifiers: Atrial fibrillation type: persistent Qualified Code(s): I48.1 - Persistent atrial fibrillation (4) COPD (chronic obstructive pulmonary disease) Code(s): J44.9 - CHRONIC OBSTRUCTIVE PULMONARY DISEASE, UNSPECIFIED Qualifiers: COPD type: unspecified COPD Qualified Code(s): J44.9 - Chronic obstructive pulmonary disease, unspecified (5) Lung nodule < 6cm on CT Code(s): R91.1 - SOLITARY PULMONARY NODULE (6) Stented coronary artery Code(s): Z95.5 - PRESENCE OF CORONARY ANGIOPLASTY IMPLANT AND GRAFT (7) Hyperlipidemia Code(s): E78.5 - HYPERLIPIDEMIA, UNSPECIFIED Qualifiers: Hyperlipidemia type: pure hypercholesterolemia Qualified Code(s): E78.00 - Pure hypercholesterolemia, unspecified; E78.0 - Pure hypercholesterolemia (8) Pacemaker Code(s): Z95.0 - PRESENCE OF CARDIAC PACEMAKER Assessment/Plan 03/26/2018 Echo: Mod-severe posterior directed MR jet, mod ANIKA, mild-mod decreased LVEF, pacemaker, mild MG 15 mmHg, mod AR 01/27/2018 Echo: Mild cLVH, normal LV fxn, mod LAE, mild MR, TR, AR, RVSP 30- 35 mmHg 01/27/2018 Lexiscan Mibi: No ischemia or infarction, LVEF 53% with mildly dilated LV 1. Acute on chronic systolic and diastolic heart failure resolving 2. Rate-controlled afib 3. Post PPM 29% v-paced 4. COPD, pulm nodule 5. Hyperlipidemia 6. CAD s/p PCI (stent), angina pectoris P:1. Change to Lasix 40 qd with monitor diuretic response, renal fxn and electrolytes 2. Continue Lipitor 40 qhs, Xarelto 20 qd, Altace 2.5 qd, Aldactone 25 qd, Bisoprolol 5 qd, Norvasc 5 qd 3. BD, O2 as needed 4. Patient to follow-up with Dr. Gume PATINO upon d/c, outpatient records have been reviewed
[2018-05-02] MEDS ORDERED: FUROSEMIDE 40 MG TABLET (FP) PO SCH (10:00)
[2018-05-02] MEDS ORDERED: AZITHROMYCIN 250 MG TABLET PO SCH (10:00)
[2018-05-02] MEDS ORDERED: PT OWN MED DRAWER 7, Y5N ONE (10:04)
[2018-05-02] MEDS: RAMIPRIL 2.5 MG CAPSULE (FP) PO SCH (10:46)
[2018-05-02] MEDS: TIOTROPIUM BROMIDE 2.5 MCG (SPIRIVA) RESPIMAT INHALER IH SCH (10:47)
[2018-05-02] MEDS: SPIRONOLACTONE 25 MG TABLET (FP) PO SCH (10:47)
[2018-05-02] MEDS: BUDESONIDE/FORMETEROL FUMARATE 80/4.5 mcg INHALER IH SCH (10:47)
[2018-05-02] MEDS: LACTOBACILLUS ACIDOPHILUS 1 TABLET PO SCH (10:47)
[2018-05-02] MEDS: PATIENT'S OWN MEDICATION (NON-FORMULARY) (Bisoprolol Fumarate [Bisoprolol Fumarate] 5 MG) PO SCH (10:47)
--- NOTE | 2018-05-02 11:36 | DS ---
Physical Exam: SUBJECTIVE: Patient seen and examined at bedside. present. OBJECTIVE: Vital Signs Period Temp Pulse Resp BP Sys/Foley Pulse Ox Last 24 Hr 97.7 F-98.4 F 63-80 16-18 102-114/56-69 95-96 PHYSICAL EXAM GENERAL: The patient is awake, alert, and fully oriented, in no acute distress. LUNGS: Breath sounds equal, clear to auscultation bilaterally, no wheezes, no crackles, no accessory muscle use. HEART: Regular rate and rhythm, S1, S2 without murmur, rub or gallop. ABDOMEN: Soft, nontender, nondistended EXTREMITIES: 2+ pulses, warm, well-perfused, no edema. NEUROLOGICAL: Cranial nerves II through XII grossly intact. Normal speech, gait not observed. LABS CBCD WBC 6.7 K/mm3 (4.0-10.8) 05/01/18 08:17 RBC 5.48 M/mm3 (4.00-5.60) 05/01/18 08:17 Hgb 12.6 GM/dl (11.7-16.9) 05/01/18 08:17 Hct 40.6 % (35.4-49) 05/01/18 08:17 MCV 74.1 fl (80-96) L 05/01/18 08:17 MCHC 31.1 g/dl (32.0-35.9) L 05/01/18 08:17 RDW 14.6 % (11.9-15.9) 05/01/18 08:17 Plt Count 272 K/MM3 (134-434) 05/01/18 08:17 MPV 8.5 fl (7.5-11.1) 05/01/18 08:17 CMP Sodium 136 mmol/L (136-145) 05/01/18 08:17 Potassium 4.1 mmol/L (3.5-5.1) 05/01/18 08:17 Chloride 99 mmol/L (98-107) 05/01/18 08:17 Carbon Dioxide 28 mmol/L (22-28) D 05/01/18 08:17 Anion Gap 9 MMOL/L (8-16) 05/01/18 08:17 BUN 24 mg/dl (7-18) H 05/01/18 08:17 Creatinine 1.2 mg/dl (0.6-1.3) 05/01/18 08:17 Creat Clearance w eGFR 59.35 (>60) 05/01/18 08:17 Calcium 9.1 mg/dl (8.4-10.2) 05/01/18 08:17 Total Bilirubin 0.8 mg/dl (0.2-1.0) 05/01/18 08:17 AST 14 U/L (10-42) D 05/01/18 08:17 ALT 12 U/L (10-40) 05/01/18 08:17 Alkaline Phosphatase 83 U/L (32-92) 05/01/18 08:17 Total Protein 6.7 g/dl (6.4-8.3) 05/01/18 08:17 Albumin 3.6 g/dl (3.5-5.0) 05/01/18 08:17 Laboratory Results - last 24 hr 05/01/18 05/01/18 08:17 16:31 Hemoglobin A1c % 6.0 Troponin I < 0.03 HOSPITAL COURSE: Date of Admission:05/01/18 Date of Discharge: 05/02/18 Pre hospital course This is a 72-year-old male with HTN, HLD, chronic systolic CHF, A-fib (s/p PPM at [facility], on [facility]), NIDDM, CAD s/p 2 stents in 2009,who presented to the ED today with chest pressure. The patient reports that he has the pressure even at rest. He also reports shortness of breath when walking a very short distance, difficulty laying flat at night, and rapid weight gain. Symptoms have been present for one week, but worsened today. He denies fevers/ chills, cough, calf pain, or any other symptoms. He notes that his LE edema seems to be at baseline. Of note, he was reportedly instructed to stop Lasix due to renal insufficiency and has been on aldactone instead. ER course was notable for: (1) EKG: Atrial fibrillation with occasional ventricular pacing, left anterior fascicular block lateral TWI also present on prior in 03/2018 (2) TNI: <0.03 (3) CXR: Congestive changes, less prominent than prior in 03/2018 Subsequent hospital course by problem list Chest pain -Resolved -No events on telemetry -Trop neg x 3 -ECG not suggestive of acute ischemic event -negative stress in 01/2018 Acute on chronic systolic and diastolic heart failure, NYHA class 2 -initially Lasix 20mg IVP bid, transitioned to lasix PO 40mg daily -continued home medications (lisinopril, spironolactone, bisoprolol, norvasc) -seen and evaluated by cardiology, outpatient followup with Dr. Matson Hypertension -BP stable COPD (chronic obstructive pulmonary disease) Assessment/Plan: -Continued Spiriva, prn albuterol NIDDM Assessment/Plan: -Continued Metformin (short expected length of stay) -Diabetic/Low sodium diet Hyperlipidemia -Continued atorvastatin Minutes to complete discharge: 35 Discharge Summary Reason For Visit: CHEST PAIN Current Active Problems Chest pain (Acute) Chronic anticoagulation (Acute) DVT prophylaxis (Acute) Diabetes (Acute) Hyperlipidemia (Acute) Hypertension (Acute) Pacemaker (Acute) Stented coronary artery (Acute) Condition: Improved - Instructions Diet, Activity, Other Instructions: A prescription has been sent to your pharmacy for furosemide/Lasix which is a diuretic. Take this medication as directed. It is recommended you follow up with Dr. Matson within one week of your discharge. Return to the emergency department with any new or worsening symptoms. Referrals: Rogelio Matson [Non Staff, Medical] - Disposition: HOME - Home Medications Comprehensive Discharge Medication List: Ambulatory Orders Atorvastatin Ca [Lipitor] 40 mg PO HS 12/19/17 Rivaroxaban [Xarelto] 15 mg PO DAILY 12/19/17 Ramipril 2.5 mg PO DAILY 03/26/18 Albuterol Sulfate Inhaler - [Ventolin HFA Inhaler -] 2 inh PO Q6H 03/27/18 Amlodipine Besylate 5 mg PO DAILY 03/27/18 Metformin HCl [Glucophage] 500 mg PO BID 03/27/18 Docusate Sodium [Colace -] 100 mg PO TID capsule 03/30/18 Lactobacillus Acidophilus [Bacid -] 1 tab PO DAILY tab 03/30/18 Sennosides [Senna -] 2 tab PO HS PRN tablet 03/30/18 Spironolactone [Aldactone -] 25 mg PO DAILY #30 tablet 03/30/18 Tiotropium [place] [Spiriva Respimat] 2 puff IH DAILY #1 inhaler 03/30/18 Bisoprolol Fumarate 5 mg PO DAILY 04/30/18 Budesonide/Formeterol Fumarate [SYMBICORT 80/4.5mcg -] 1 inh PO BID 05/01/18 This patient is new to me today: Yes Date on this admission: 05/03/18 Emergency Visit: Yes ED Registration Date: 05/01/18 Care time: The patient presented to the Emergency Department on the above date and was hospitalized for further evaluation of their emergent condition. Critical Care patient: No - Discharge Referral Referred to [facility] Med P.C.: No
[2018-05-02 13:23] VITALS: BP 100/56; PULSE 67; TEMP 98.7
== END 2018-05-02 14:30 | disposition home or self-care (01) | DRG 194 ==
LOC: FER 07:19 → FM/S 08:49 → OBSVTOIN 05-01 13:30
PROVIDERS: ADMIT Internal Medicine; ATTEND Nurse Practitioner Acute Care
DX: I11.0 Hypertensive heart disease with heart failure (principal); I50.43 Acute on chronic combined systolic (congestive) and diastolic (congestive) heart failure; I48.1 Persistent atrial fibrillation; J44.9 Chronic obstructive pulmonary disease, unspecified; I44.4 Left anterior fascicular block; Z79.01 Long term (current) use of anticoagulants; R91.1 Solitary pulmonary nodule; R07.9 Chest pain, unspecified; I25.119 Atherosclerotic heart disease of native coronary artery with unspecified angina pectoris; E78.5 Hyperlipidemia, unspecified; Z95.5 Presence of coronary angioplasty implant and graft; Z95.0 Presence of cardiac pacemaker; K59.00 Constipation, unspecified; N40.0 Benign prostatic hyperplasia without lower urinary tract symptoms; Z87.891 Personal history of nicotine dependence
CPT/HCPCS: 36415; 71045-TC-FY; 80053; 80061; 82550; 82962; 83036; 83721; 83735; 83880; 84484; 85025; 93005; 93306-TC; 97116-GP; 97161-GP; 99284-25; G0378